=== PATIENT | male | born 1970 | race Caucasian/White ===

== ENCOUNTER 2017-10-29 23:32 | Emergency (ER) | payer SELFPAY ==
[2017-10-29 23:39] VITALS: BP 140/82; PULSE 62; TEMP 98; BMI 39.7
--- NOTE | 2017-10-30 00:32 | PDOC ---
History of Present Illness - General Chief Complaint: Blood Pressure Problem Stated Complaint: BLOOD PRESSURE PROBLEM Time Seen by Provider: 10/30/17 00:31 Past History - Past Medical History Allergies/Adverse Reactions: Allergies Allergy/AdvReac Type Severity Reaction Status Date / Time No Known Allergies Allergy Verified 10/29/17 23:39 Home Medications: Ambulatory Orders Losartan Potassium [Cozaar -] 25 mg PO DAILY #0 tablet 04/21/13 Metoprolol Tartrate [Lopressor -] 25 mg PO DAILY #0 tab 04/21/13 Ondansetron [Zofran Odt -] 8 mg SL TID PRN #21 od.tablet 01/18/15 Oxycodone HCl/Acetaminophen [Percocet 10-325 mg Tablet] 1 tab PO Q6H PRN #4 tablet 01/18/15 Oxycodone HCl/Acetaminophen [Percocet 5/325 -] 1 tab PO Q4H PRN #10 tablet 05/11 levoFLOXacin [Levaquin -] 500 mg PO DAILY #7 tablet 09/27/15 metroNIDAZOLE [Flagyl -] 500 mg PO TID #21 tablet 09/27/15 COPD: No HTN: Yes Thyroid Disease: No - Surgical History Abdominal Surgery: Yes (AAA REPAIR 04/12/13, stent replaced 01/07/2014) - Immunization History Immunization Up to Date: Yes - Suicide/Smoking/Psychosocial Hx Smoking History: Never smoked Have you smoked in the past 12 months: No Number of Cigarettes Smoked Daily: 0 Hx Alcohol Use: Yes (SOCIAL) Drug/Substance Use Hx: No Substance Use Type: None Hx Substance Use Treatment: No *Physical Exam - Vital Signs Last Vital Signs Temp Pulse Resp BP Pulse Ox 98.0 F 62 18 140/82 99 10/29/17 23:37 10/29/17 23:37 10/29/17 23:37 10/29/17 23:37 10/29/17 23:37 *DC/Admit/Observation/Transfer - Referrals Referrals: Yenni Bello MD [Primary Care Provider] - - Patient Instructions - Post Discharge Activity
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
[2017-10-30] MEDS ORDERED: TOPIRAMATE 200 MG TABLET (FP) PO ONE (01:35)
[2017-10-30] MEDS ORDERED: OXcarbazepine 300 MG/5 ML 250 ML BULK BOTTLE PO ONE (01:35)
[2017-10-30] MEDS ORDERED: BACLOFEN 10 MG TABLET (FP) PO ONE (01:35)
[2017-10-30] MEDS ORDERED: levETIRAcetam 500 MG TABLET (FP) PO ONE (01:35)
== END 2017-10-30 01:28 | disposition left against medical advice (07) ==
LOC: JER 23:32
DX: I10 Essential (primary) hypertension (principal); E66.9 Obesity, unspecified; Z68.39 Body mass index [BMI] 39.0-39.9, adult; Z86.79 Personal history of other diseases of the circulatory system; Z87.19 Personal history of other diseases of the digestive system; Z95.828 Presence of other vascular implants and grafts
CPT/HCPCS: 99282-25

== ENCOUNTER 2018-11-06 09:18 | Emergency (ER) | payer OTHER ==
[2018-11-06 09:24] VITALS: TEMP 97.9; BMI 43.4
[2018-11-06] MEDS ORDERED: ACETAMINOPHEN 1000 MG/100 ML VIAL (NON FORMULARY) IVPB ONE (10:04)
[2018-11-06] MEDS ORDERED: METOCLOPRAMIDE HCL INJECTION 10 MG/2 ML VIAL IVPB ONE (10:04)
[2018-11-06] MEDS ORDERED: SODIUM CHLORIDE 1,000 ML IV STA (10:04)
[2018-11-06] MEDS ORDERED: ACETAMINOPHEN INJECTION 100 ML IVPB ONE (10:38)
[2018-11-06] MEDS ORDERED: METOCLOPRAMIDE HCL INJECTION 10 MG/2 ML VIAL ONE (10:38)
[2018-11-06 10:49] LABS: EOS % 3.1 % (0-4.5); HEMATOCRIT 38.6 % (35.4-49); HEMOGLOBIN 12.8 GM/dL (11.7-16.9); LYMPH % 20.5 % (8-40); MCH 28.1 pg (25.7-33.7); MEAN CELL VOLUME 85.1 fl (80-96); MEAN PLT VOLUME 8.5 fl (7.5-11.1); MONO % 11.1 % (3.8-10.2); NEUT % 64.3 % (42.8-82.8); RBC 4.54 M/mm3 (4.00-5.60); WHITE BLOOD COUNT 6.5 K/mm3 (4.0-10.0)
--- NOTE | 2018-11-06 10:49 | PDOC ---
History of Present Illness - General Chief Complaint: CVA/TIA Stated Complaint: tongue numbing/ headache Time Seen by Provider: 11/06/18 09:41 History Source: Patient, Spouse Exam Limitations: Language Barrier - History of Present Illness Initial Comments: 11/06/18 10:45 48yo M with PMH of AAA s/p repair 2014, HTN presenting to ED with complaints of tongue swelling sensation, difficulty speaking and posterior headache. 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 His did not notice any changes in speech but patient was worried. Speech problems resolved upon examining patient. He states that his tongue feels like "there is an allergy." He has been having posterior headaches x3d which is bothersome but not painful. He states the headaches feel worse in the morning and is less bothersome throughout the day. Denies changes in vision, numbness/tingling, weakness, tinnitus, dizziness, lightheadedness, chest pain, sob, abdominal pain , n/v/d, syncope, dysuria, fevers, chills. PMD: Marquis Camp[place]: Kwame PMH: see hpi PSH; see hpi Meds: see med rec Allergies: nkda Past History - Past Medical History Allergies/Adverse Reactions: Allergies Allergy/AdvReac Type Severity Reaction Status Date / Time No Known Allergies Allergy Verified 11/06/18 09:24 Home Medications: Ambulatory Orders Losartan Potassium [Cozaar -] 25 mg PO DAILY #0 tablet 04/21/13 Metoprolol Tartrate [Lopressor -] 25 mg PO DAILY #0 tab 04/21/13 Ondansetron [Zofran Odt -] 8 mg SL TID PRN #21 od.tablet 01/18/15 Oxycodone HCl/Acetaminophen [Percocet 10-325 mg Tablet] 1 tab PO Q6H PRN #4 tablet 01/18/15 COPD: No HTN: Yes Thyroid Disease: No - Surgical History Abdominal Surgery: Yes (AAA REPAIR 04/12/13, stent replaced 01/07/2014) - Immunization History Immunization Up to Date: Yes - Suicide/Smoking/Psychosocial Hx Smoking History: Never smoked Have you smoked in the past 12 months: No Number of Cigarettes Smoked Daily: 0 Hx Alcohol Use: No Drug/Substance Use Hx: No Substance Use Type: None Hx Substance Use Treatment: No Review of Systems - Review of Systems Constitutional: No: Symptoms Reported HEENTM: Yes: See HPI Respiratory: No: Symptoms reported Cardiac (ROS): No: Symptoms Reported ABD/GI: No: Symptoms Reported : No: Symptoms Reported Musculoskeletal: No: Symptoms Reported Integumentary: No: Symptoms Reported Neurological: Yes: See HPI *Physical Exam - Vital Signs Last Vital Signs Temp Pulse Resp BP Pulse Ox 97.9 F 95 H 18 158/83 97 11/06/18 09:20 11/06/18 09:20 11/06/18 09:20 11/06/18 09:20 11/06/18 09:20 - Physical Exam General Appearance: Yes: Appropriately Dressed, Obese. No: Apparent Distress HEENT: positive: EOMI, BRIANNA, Normal ENT Inspection Neck: positive: Trachea midline, Supple. negative: Carotid bruit Respiratory/Chest: positive: Lungs Clear, Normal Breath Sounds. negative: Rhonchi, Stridor, Wheezing Cardiovascular: positive: Regular Rhythm, Regular Rate, S1, S2. negative: Edema , JVD, Murmur Vascular Pulses: Dorsalis-Pedis (R): 2+, Doralis-Pedis (L): 2+ Gastrointestinal/Abdominal: positive: Normal Bowel Sounds, Soft. negative: Tender Musculoskeletal: negative: CVA Tenderness, Decreased Range of Motion Extremity: positive: Normal Capillary Refill. negative: Swelling, Calf Tenderness Integumentary: positive: Normal Color, Dry, Warm. negative: Swelling Neurologic: positive: director of restaurant II-XII NML intact, Fully Oriented, Alert, Normal Mood/ Affect, Normal Response, Motor Strength 5/5, Finger to Nose. negative: Facial Droop, Numbness, Sensory Deficit ED Treatment Course - LABORATORY CBC & Chemistry Diagram: 11/06/18 10:39 11/06/18 10:39 - RADIOLOGY Radiology Studies Ordered: Category Date Time Status HEAD CT WITHOUT CONTRAST [CT] Stat CT Scan 11/06/18 10:15 Completed Medical Decision Making - Medical Decision Making 11/06/18 10:49 48yo M with PMH of AAA s/p repair 2014, HTN presenting to ED with complaints of tongue swelling sensation, difficulty speaking and posterior headache. 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 His did not notice any changes in speech but patient was worried. Speech problems resolved upon examining patient. He states that his tongue feels like "there is an allergy." He has been having posterior headaches x3d which is bothersome but not painful. He states the headaches feel worse in the morning and is less bothersome throughout the day. Denies changes in vision, numbness/tingling, weakness, tinnitus, dizziness, lightheadedness, chest pain, sob, abdominal pain , n/v/d, syncope, dysuria, fevers, chills. Vitals: wnl PE: NIHSS 0, normal neurological exam. lungs cta, heart sound normal. low suspicion for cva/tia given pt feels like his tongue is swollen, not numb. did not notice dysarthria and patient denies, only felt that way because his tongue felt funny. will order labs, ct head. fluids, reglan and tylenol for headache. Will reassess. CT negative for acute process. ekg: sinus at 75. pr 218, wtc 442. no shannon or depressions, no afib labs wnl pt reports feeling better after medications. likely atypical migraine. given neuro f/u. safe for dc home. given strict return precautions. *DC/Admit/Observation/Transfer Diagnosis at time of Disposition: Headache Qualifiers: Headache type: unspecified Headache chronicity pattern: acute headache Intractability: not intractable Qualified Code(s): R51 - Headache - Discharge Dispostion Disposition: HOME Condition at time of disposition: Improved Decision to Admit order: No - Referrals Referrals: Hortensia Wetzel MD [Primary Care Provider] - Dick Puente MD [Staff Physician] - Sohan Payton MD [Staff Physician] - - Patient Instructions Printed Discharge Instructions: DI for Headache Additional Instructions: You were seen in the emergency room today for headache. The CT scan and the blood work was all normal. I do not think that this was a stroke, it could be an atypical migraine headache. You can take Tylenol or ibuprofen for the headaches as needed. I recommend making an appointment with a neurologist if the headaches continue to bother you. Information is provided below. I also recommend making an appointment with Dr. Puente to discuss the repair and getting a CT scan of the abdomen. Come back to the emergency room if headaches get worse, you have difficulty talking, you are unable to move your arms and/or legs, you have facial droop or if any new concerning symptom develops. Thank you Te vieron en la twial de emergencias hoy por dolor de dallin. La tomografa computarizada y el anlisis de luis fueron normales. No creo que esto haya sido un derrame cerebral, podra ser un dolor de dallin de migraa atpico. Puede dutch Tylenol o ibuprofeno para los apurva de dallin segn sea necesario. Recomiendo hacer anna marie nii con un neurlogo si los apurva de dallin continan molestndolo. La informacin se proporciona a continuacin. Darryl recomiendo hacer anna marie nii con el Dr. Puente para discutir la reparacin y obtener anna marie tomografa computarizada del abdomen. Regrese a la twila de emergencias si los apurva de dallin empeoran, tiene dificultades para hablar, no puede truck dock material mover los brazos y / o las piernas, tiene cada facial o si se desarrolla algn sntoma nuevo. Shaquille Print Language: MALAY - Post Discharge Activity
[2018-11-06 10:54] LABS: PLATELET COUNT 268 K/MM3 (134-434)
--- NOTE | 2018-11-06 10:58 | PDOC ---
Documentation entered by Blanca Rosas SCRIBE, acting as scribe for Hunter Wilson MD. Hunter Wilson MD: This documentation has been prepared by the roulaibe, Blanca Rosas SCRIBE, under my direction and personally reviewed by me in its entirety. I confirm that the documentation accurately reflects all work, treatment, procedures, and medical decision making performed by me. Attending Attestation - Resident Resident Name: Pilar Harvey - ED Attending Attestation I have performed the following: I have examined & evaluated the patient, The case was reviewed & discussed with the resident, I agree w/resident's findings & plan, Exceptions are as noted - HPI HPI: 11/06/18 10:58 48 M with h/o AAA s/p repair, HTN, presenting to ED with headache and tongue "heaviness". Pt states that he has had a mild headache for 3 days. He reports R sided pain that comes and goes. Denies thunderclap, denies worst headache of life. Denies N/V. Denies neck stiffness/pain. Denies F/C. States that he has had similar headaches int he past. Pt also endorses a heaviness in his tongue. He states it initially felt numb but now feels as if it is swollen. Denies any slurred speech. Denies throat swelling. Denies difficulty swallowing or breathing. denies any changes in his face or speech. Pt denies any numbness /weakness in any extremity. Denies CP/SOB. - Physicial Exam PE: 11/06/18 11:00 "GENERAL: Awake, alert, and fully oriented, in no acute distress. HEAD: No signs of trauma EYES: PERRLA, EOMI, sclera anicteric, conjunctiva clear ENT: Auricles normal inspection, hearing grossly normal, nares patent, oropharynx clear without exudates. Moist mucosa NECK: Nontender, no stepoffs, Normal ROM, supple, no lymphadenopathy, JVD, or masses LUNGS: Breath sounds equal, clear to auscultation bilaterally. No wheezes, and no crackles HEART: Regular rate and rhythm, normal S1 and S2, no murmurs, rubs or gallops ABDOMEN: Soft, nontender, normoactive bowel sounds. No guarding, no rebound. No masses EXTREMITIES: Normal range of motion, no edema. No clubbing or cyanosis. No cords, erythema, or tenderness NEUROLOGICAL: Cranial nerves II through XII intact. 5/5 strength and sensation in all extremities, Normal speech, normal gait, normal cerebellar function SKIN: Warm, Dry, normal turgor, no rashes or lesions noted. - Medical Decision Making 11/06/18 11:02 48 M with headache and tongue heaviness. NIHSS 0 at this time. NO neuro deficits , no dysarthria. No evidence of tongue swelling or other airway edema/ compromise. Exam completely benign at this time. Suspect headache is migrainous. Possible atypical migraine. - Labs - CT head - IVF, tylenol, reglan - Reassess 11/06/18 11:58 Labs, CT wnl Pt reassessed - now has complete resolution of OLIVEROS and tongue heaviness. Exam continues to be normal without neuro deficits Pt is well appearing, with normal vitals. Clinically stable for DC at this time. I discussed the physical exam findings, ancillary test results and final diagnoses with the patient. I answered all of the patient's questions. The patient was satisfied with the care received and felt comfortable with the discharge plan and treatment plan. The patient agrees to follow up with the primary care physician within 24-72 hours.
[2018-11-06 11:01] LABS: INR 1.16 (0.83-1.09); PROTHROMBIN TIME (PATIENT) 13.7 SEC (9.7-13.0)
[2018-11-06 11:19] LABS: ALBUMIN 3.5 g/dl (3.4-5.0); ALK PHOS 74 U/L (45-117); ANION GAP 2 MMOL/L (8-16); BILIRUBIN,TOTAL 0.5 mg/dL (0.2-1); BLOOD UREA NITROGEN 13.9 mg/dL (7-18); CHLORIDE 107 mmol/L (98-107); CO2 32 mmol/L (21-32); CREATININE 0.7 mg/dL (0.55-1.3); GLUCOSE,RANDOM 87 mg/dL (74-106); POTASSIUM 4.2 mmol/L (3.5-5.1); SGOT/AST 24 U/L (15-37); SGPT/ALT 38 U/L (13-61); SODIUM 142 mmol/L (136-145); TOT PROT 7.2 g/dl (6.4-8.2)
[2018-11-06 11:33] VITALS: PULSE 88
[2018-11-06 12:13] VITALS: BP 148/76
--- NOTE | 2018-11-06 14:01 | EKG ---
Test Reason : Blood Pressure : / mmHG Vent. Rate : 075 BPM Atrial Rate : 075 BPM P-R Int : 218 ms QRS Dur : 092 ms QT Int : 396 ms P-R-T Axes : 040 -12 027 degrees QTc Int : 442 ms POOR DATA QUALITY, INTERPRETATION MAY BE ADVERSELY AFFECTED SINUS RHYTHM WITH 1ST DEGREE A-V BLOCK MINIMAL VOLTAGE CRITERIA FOR LVH, MAY BE NORMAL VARIANT WHEN COMPARED WITH ECG OF 11-MAY-2015 15:48, NO SIGNIFICANT CHANGE WAS FOUND Confirmed by DAFNE CHERRY MD ([id number]) on 11/06/2018 2:01:27 PM Referred By: Confirmed By:DAFNE CHERRY MD
== END 2018-11-06 12:12 | disposition home or self-care (01) ==
LOC: JER 09:18
PROC: 3E033NZ Introduction of Analgesics, Hypnotics, Sedatives into Peripheral Vein, Percutaneous Approach (ICD-10-PCS; principal; 2018-11-06)
PROC: 3E033GC Introduction of Other Therapeutic Substance into Peripheral Vein, Percutaneous Approach (ICD-10-PCS; 2018-11-06)
DX: R51 Headache (principal); I10 Essential (primary) hypertension; Z86.79 Personal history of other diseases of the circulatory system
CPT/HCPCS: 36415; 70450-TC; 80053; 84484; 85025; 85610; 93005; 93010; 96374; 96375; 99283-25; J0131; J7030

== ENCOUNTER 2018-11-07 13:36 | Inpatient (IN) | payer OTHER ==
[2018-11-07] MEDS ORDERED: ACETAMINOPHEN 1000 MG/100 ML VIAL (NON FORMULARY) IVPB ONE (14:57)
[2018-11-07] MEDS ORDERED: ATORVASTATIN CA 80 MG TABLET (FP) PO ONE (15:22)
--- NOTE | 2018-11-07 15:29 | PDOC ---
History of Present Illness - General Chief Complaint: Blood Pressure Problem Stated Complaint: TONGUE NUMBING, HTN Time Seen by Provider: 11/07/18 14:16 History Source: Patient, Spouse Exam Limitations: Language Barrier - History of Present Illness Initial Comments: 11/07/18 15:30 48yo M with PMH of AAA s/p repair 2013, HTN representing to ED with complaints of tongue itchiness/heaviness affecting speech. Pt was seen here yesterday for similar complaints. Workup yesterday was negative with negative CT and symptomatic improvement with medications. Since being discharged home, pt complained of the itchiness in the tongue and posterior headache which he has had for a few days. Per , headache was worse last night. She checked his bp this AM prior to giving medications and it was 170s/90s. She also noticed a difference in his speech, describing it as "he sounded drunk". She gave him Benadryl prior to arrival which seemed to have helped but patient still feels as if he cannot speak well. He has significant family history of CVD. Denies numbness/tingling in face or extremities, weakness, changes in vision, ataxia, dizziness, n/v/d, chest pain, sob, throat swelling, new medication or food ingestion, thunderclap headache, syncope, injury. PMD: [place] PMH: see hpi PSH: see hpi Meds: antihypertensives Allergies: nkda NIH Stroke Scale - Last Known Well Date/Time & Onset Date Last Known Well: 11/06/18 Time Last Known Well: 00:00 - Initial Evaluation Level of consciousness: Alert Ask patient the month and their age: Answers both correctly Ask patient to open & close eyes; make fist and let go: Obeys both correctly Best gaze (horizontal eye movement): Normal Visual field testing: No visual field loss Facial paresis (Show teeth/raise eyebrows/close eyes tight): Normal symmetrical movement Motor Function: Left Arm: Normal Motor Function: Right Arm: Normal (extends arm 90 (or 45) degrees for 10 seconds without drift Motor Function: Left Leg: Normal (extends leg 30 degrees for 5 seconds without drift) Motor Function: Right Leg: Normal (extends leg 30 degrees for 5 seconds without drift) Limb Ataxia: No ataxia Sensory(Use pinprick test arms,legs,trunk,face/side to side): Normal Best language (Describe picture, name items, read sentences): No Aphasia Dysarthria (read several words): Normal articulation Extinction and Inattention: No abnormality - Total Score NIH Stroke Scale Score: 0 Past History - Past Medical History Allergies/Adverse Reactions: Allergies Allergy/AdvReac Type Severity Reaction Status Date / Time No Known Allergies Allergy Verified 11/07/18 13:45 Home Medications: Ambulatory Orders Losartan Potassium [Cozaar -] 25 mg PO DAILY #0 tablet 04/21/13 Metoprolol Tartrate [Lopressor -] 25 mg PO DAILY #0 tab 04/21/13 Ondansetron [Zofran Odt -] 8 mg SL TID PRN #21 od.tablet 01/18/15 Oxycodone HCl/Acetaminophen [Percocet 10-325 mg Tablet] 1 tab PO Q6H PRN #4 tablet 01/18/15 COPD: No HTN: Yes Thyroid Disease: No - Surgical History Abdominal Surgery: Yes (AAA REPAIR 04/12/13, stent replaced 01/07/2014) - Immunization History Immunization Up to Date: Yes - Suicide/Smoking/Psychosocial Hx Smoking History: Never smoked Have you smoked in the past 12 months: No Number of Cigarettes Smoked Daily: 0 Information on smoking cessation initiated: No Hx Alcohol Use: No Drug/Substance Use Hx: No Substance Use Type: None Hx Substance Use Treatment: No Review of Systems - Review of Systems Constitutional: No: Symptoms Reported HEENTM: Yes: See HPI, Other. No: Throat Pain, Throat Swelling Respiratory: No: Symptoms reported Cardiac (ROS): No: Symptoms Reported ABD/GI: No: Symptoms Reported : No: Symptoms Reported Musculoskeletal: No: Symptoms Reported Integumentary: No: Symptoms Reported Neurological: Yes: See HPI *Physical Exam - Vital Signs Last Vital Signs Temp Pulse Resp BP Pulse Ox 97.7 F 69 19 130/76 97 11/07/18 13:43 11/07/18 13:43 11/07/18 13:43 11/07/18 13:43 11/07/18 13:43 - Physical Exam General Appearance: Yes: Appropriately Dressed, Obese. No: Apparent Distress HEENT: positive: EOMI, BRIANNA, Normal ENT Inspection, Other (no OP swelling) Neck: positive: Trachea midline, Supple. negative: Carotid bruit, Lymphadenopathy (R), Lymphadenopathy (L) Respiratory/Chest: positive: Lungs Clear, Normal Breath Sounds Cardiovascular: positive: Regular Rhythm, Regular Rate, S1, S2. negative: Edema , JVD, Murmur Vascular Pulses: Dorsalis-Pedis (R): 2+, Doralis-Pedis (L): 2+ Gastrointestinal/Abdominal: positive: Normal Bowel Sounds, Soft. negative: Tender Musculoskeletal: negative: CVA Tenderness Extremity: positive: Normal Capillary Refill. negative: Swelling, Calf Tenderness Integumentary: positive: Normal Color, Dry, Warm Neurologic: positive: luggage maker II-XII NML intact, Fully Oriented, Alert, Normal Mood/ Affect, Normal Response, Motor Strength 5/5, Finger to Nose. negative: Facial Droop, Numbness, Sensory Deficit ED Treatment Course - LABORATORY CBC & Chemistry Diagram: 11/07/18 15:05 11/07/18 15:05 - RADIOLOGY Radiology Studies Ordered: Category Date Time Status HEAD CT WITHOUT CONTRAST [CT] Stat CT Scan 11/07/18 14:51 Ordered BRAIN MRA W/O CONTRAST [MRI] Stat MRI 11/07/18 15:22 Ordered BRAIN MRI W/O CONTRAST [MRI] Stat MRI 11/07/18 15:20 Ordered Medical Decision Making - Medical Decision Making 11/07/18 15:35 48yo M with PMH of AAA s/p repair 2013, HTN representing to ED with complaints of tongue itchiness/heaviness affecting speech. Pt was seen here yesterday for similar complaints. Workup yesterday was negative with negative CT and symptomatic improvement with medications. Since being discharged home, pt complained of the itchiness in the tongue and posterior headache which he has had for a few days. Per , headache was worse last night. She checked his bp this AM prior to giving medications and it was 170s/90s. She also noticed a difference in his speech, describing it as "he sounded drunk". She gave him Benadryl prior to arrival which seemed to have helped but patient still feels as if he cannot speak well. He has significant family history of CVD. Denies numbness/tingling in face or extremities, weakness, changes in vision, ataxia, dizziness, n/v/d, chest pain, sob, throat swelling, new medication or food ingestion, thunderclap headache, syncope, injury. Vitals: wnl PE: normal neurological exam, NIHSS 0, normal tongue movements, able to move tongue rapidly without complications, no ataxia, normal heart sounds, normal breath sounds, no neck stiffness. This is patient's second time coming to ED with similar complaints. Given family history and patient's history of CAD, may need admission for evaluation of stroke. Stroke scale 0 and last known well >24h ago. Does not qualify for tpa. Low suspicion for meningitis/encephalitis given patient not febrile, no neck stiffness, and no white count. Spoke to Dr. Valdes who recommended MRI/MRA. Will place pt on statin. Will need admission to tele. Labs and CT head pending. 11/07/18 15:45 ekg: nsr at 60bpm, pr 208, qtc 430. no shannon or depressions. Labs show K of 5.9 with note of slight hemolysis. will check again. All other labs wnl. Pt refusing to take Lipitor. CT head shows possible Chiari malformation with tonsils near foramen magnum. Accepted by hospitalist. 11/07/18 19:51 *DC/Admit/Observation/Transfer Diagnosis at time of Disposition: Slurred speech - Discharge Dispostion Condition at time of disposition: Good Decision to Admit order: Yes - Referrals - Patient Instructions - Post Discharge Activity
[2018-11-07 15:54] LABS: BASO % 1.1 % (0-2.0); EOS % 2.7 % (0-4.5); HEMATOCRIT 40.2 % (35.4-49); HEMOGLOBIN 13.4 GM/dL (11.7-16.9); LYMPH % 27.7 % (8-40); MCHC 33.2 g/dl (32.0-35.9); MEAN CELL VOLUME 84.4 fl (80-96); MEAN PLT VOLUME 9.4 fl (7.5-11.1); MONO % 10.5 % (3.8-10.2); PLATELET COUNT 292 K/MM3 (134-434); RBC 4.77 M/mm3 (4.00-5.60); RDW 15.5 % (11.9-15.9); WHITE BLOOD COUNT 7.8 K/mm3 (4.0-10.0)
[2018-11-07] MEDS ORDERED: ATORVASTATIN CA 80 MG TABLET (FP) ONE (15:54)
[2018-11-07 16:21] LABS: ALBUMIN 3.5 g/dl (3.4-5.0); BILIRUBIN,TOTAL 0.6 mg/dL (0.2-1); BLOOD UREA NITROGEN 11.6 mg/dL (7-18); CALCIUM 9.1 mg/dL (8.5-10.1); CREATININE 0.7 mg/dL (0.55-1.3); MAGNESIUM 2.4 mg/dL (1.8-2.4); POTASSIUM 5.9 mmol/L (3.5-5.1); TOT PROT 7.9 g/dl (6.4-8.2)
--- NOTE | 2018-11-07 16:30 | PDOC ---
Documentation entered by Blanca Rosas SCRIBE, acting as scribe for Elizabeth Olivier MD. Elizabeth Olivier MD: This documentation has been prepared by the scribe, Blanca Rosas SCRIBE, under my direction and personally reviewed by me in its entirety. I confirm that the documentation accurately reflects all work, treatment, procedures, and medical decision making performed by me. Attending Attestation - Resident Resident Name: Pilar Harvey - [facility] HPI: 11/07/18 15:29 The patient is a 48-year-old male with a past medical history significant for AAA repair, and HTN presents to the emergency department with tongue itching and heaviness. The patient reports itching and heaviness to his tongue, associated with voice change per , denies slurred speech. The patient was seen at the ER for a similar complaint on 11/06/2018. Patient's CT was negative for acute processes and discharged home. The patient reports since discharge, he s been having tongue itching and worsening headache. Denies weakness or facial drooping. - Physicial Exam PE: 11/07/18 16:28 GENERAL: Awake, alert, and fully oriented, in no acute distress LUNGS: Breath sounds equal, clear to auscultation bilaterally. No wheezes, and no crackles HEART: Regular rate and rhythm, normal S1 and S2, no murmurs, rubs or gallops NEUROLOGICAL: +very mild word finding difficulty. SKIN: Warm, Dry, normal turgor, no rashes or lesions noted. - Medical Decision Making 11/16/18 07:16 Pt presents to the ED complaining of tongue heaviness and changes to his speech that began last night. Seen in the ED for similar complaints yesterday, had work up that was negative and was discharged home. Neuro exam is intact with possible very slight slurred speech and word finding difficulty. Given that the patient has multiple risk factors for CVA and that this is his second visit , will admit for CVA rule out. 11/16/18 07:20
[2018-11-07 17:03] LABS: INR 1.13 (0.83-1.09); PROTHROMBIN TIME (PATIENT) 13.3 SEC (9.7-13.0)
--- NOTE | 2018-11-07 18:14 | PN ---
Teaching Attending Note Name of Resident: Faiza Purvis ATTENDING PHYSICIAN STATEMENT I saw and evaluated the patient. I reviewed the resident's note and discussed the case with the resident. I agree with the resident's findings and plan as documented. SUBJECTIVE: Tongue heaviness and itching mildly improved after Benadryl. Episode of slurred speech earlier today resolved. No difficulty swallowing or breathing. No limb numbness/weakness/tingling/fits/faints/blackouts/seizures. Mild headache. No visual disturbance/nausea/vomiting OBJECTIVE: Afebrile, Hemodnamically Stable. Last Vital Signs Temp Pulse Resp BP Pulse Ox 97.7 F 69 19 130/76 99 11/07/18 13:43 11/07/18 13:43 11/07/18 13:43 11/07/18 13:43 11/07/18 14:30 HEENT - Atraumatic, normocephalic. Clearing secretions, normal appearing tongue. Heart - S1, S2, RRR Lungs - clear to auscultation, no crackles/wheeze. No stridor. Abdomen - High BMI. Soft, non-tender. Bowel Sounds normal. Extremities - No edema, varicose veins, no calf tenderness Neuro - AAO x 3. Tone/Power normal all 4 extremities. candle wicker intact. EOMI. BRIANNA. Laboratory Results - last 24 hr 11/07/18 11/07/18 11/07/18 15:05 15:05 15:05 WBC 7.8 RBC 4.77 Hgb 13.4 Hct 40.2 MCV 84.4 MCH 28.0 MCHC 33.2 RDW 15.5 Plt Count 292 MPV 9.4 D Absolute Neuts (auto) 4.5 Neutrophils % 58.0 Lymphocytes % 27.7 D Monocytes % 10.5 H Eosinophils % 2.7 Basophils % 1.1 Nucleated RBC % 0 PT with INR INR Sodium 140 Potassium 5.9 H Chloride 107 Carbon Dioxide 28 Anion Gap 6 L BUN 11.6 Creatinine 0.7 Est GFR (CKD-EPI)AfAm 130.25 Est GFR (CKD-EPI)NonAf 112.38 Random Glucose 75 Calcium 9.1 Magnesium 2.4 Total Bilirubin 0.6 AST 65 H ALT 39 Alkaline Phosphatase 67 Troponin I < 0.02 Total Protein 7.9 Albumin 3.5 11/07/18 11/07/18 15:05 16:39 WBC RBC Hgb Hct MCV MCH MCHC RDW Plt Count MPV Absolute Neuts (auto) Neutrophils % Lymphocytes % Monocytes % Eosinophils % Basophils % Nucleated RBC % PT with INR Cancelled 13.30 H INR Cancelled 1.13 H Sodium Potassium Chloride Carbon Dioxide Anion Gap BUN Creatinine Est GFR (CKD-EPI)AfAm Est GFR (CKD-EPI)NonAf Random Glucose Calcium Magnesium Total Bilirubin AST ALT Alkaline Phosphatase Troponin I Total Protein Albumin Home Medications Medication Instructions Recorded Losartan Potassium [Cozaar -] 25 mg PO DAILY #0 tablet 04/21/13 Metoprolol Tartrate [Lopressor -] 25 mg PO DAILY #0 tab 04/21/13 Ondansetron [Zofran Odt -] 8 mg SL TID PRN #21 od.tablet 01/18/15 Oxycodone HCl/Acetaminophen 1 tab PO Q6H PRN #4 tablet 01/18/15 [Percocet 10-325 mg Tablet] ASSESSMENT AND PLAN: 48 year old male with HTN, AAA s/p repair 2013, presents with 2 day history of tongue heaviness, itching, episode of slurred speech earlier today (now resolved ). No difficulty swallowing or breathing. Mild headache with no visual disturbance/nausea/vomiting or limb numbness/weakness/tingling. No LOC or HI. No fever/chills. 1. Tongue Heaviness/Itching - no evidence of CVA, likely Allergy CT brain neg MRI/MRA Brain - neg for acute intracranial infarct; no stenosis/dissection/ occlusion. ECG - NSR, no acute changes. Complete TIA work-up: Echo with bubble study and Carotid Duplex requested. Neurology consult. Telemetry monitoring. Regular neurochecks. Hold Losartan. Benadryl prn Fasting Lipid Profile in AM ASA/Statin started. 2. Hyperkalemia, likely lab error. Repeat K level Hold Losartan. 3. HTN - continue Metoprolol. Hold Losartan. Will give Norvasc 5mg. 4. AAA s/p repair 2013 - continue BB DVT Px - Heparin SQ
[2018-11-07] MEDS ORDERED: diphenhydrAMINE HCL 25 MG CAPSULE (FP) PO PRN (18:37)
--- NOTE | 2018-11-07 18:47 | HP ---
CHIEF COMPLAINT: tongue heaviness and headache PCP: HISTORY OF PRESENT ILLNESS: 48 yo M PMH HTN, AAA ( s/p repair 2013) presented to the ED complaining of tongue heaviness and headache. Pt states that yesterday around 9 am he first noticed the heaviness in his tongue. He states that this was impairing his speech. Pt also noted a headache and an elevated BP when he checked his BP at home. Pt presented to the ED yesterday with the same complaint. Pt states that the symptoms have not resolved. Pt currently states that his tongue heaviness is improved. he described his headache as a dull headache, 4/10 intensity. he states he sometimes experiences similar headaches when his BP is elevated. Pt states he is compliant with his medications and that his last physical was 2 months ago and was wnl. Pt states this is the first time this has happened. Pt denies dizziness, CP, palpitations, n/v/d. Pt states he has no known allergies. ER course was notable for: (1)CT head (2)MRI/MRA (3) PAST MEDICAL HISTORY: HTN, AAA PAST SURGICAL HISTORY: AAA repair Social History: Smoking:denies Alcohol:denies Drugs: denies Family History: Mother from Aneurysm, HTN, DM; Brother at age 35 from [place] Allergies No Known Allergies Allergy (Verified 11/07/18 13:45) HOME MEDICATIONS: Home Medications Medication Instructions Recorded Losartan Potassium [Cozaar -] 25 mg PO DAILY #0 tablet 04/21/13 Metoprolol Tartrate [Lopressor -] 25 mg PO DAILY #0 tab 04/21/13 Ondansetron [Zofran Odt -] 8 mg SL TID PRN #21 od.tablet 01/18/15 Oxycodone HCl/Acetaminophen 1 tab PO Q6H PRN #4 tablet 01/18/15 [Percocet 10-325 mg Tablet] REVIEW OF SYSTEMS CONSTITUTIONAL: Absent: fever, chills, diaphoresis, generalized weakness, malaise, loss of appetite, weight change HEENT: Present: tongue heaviness Absent: rhinorrhea, nasal congestion, throat pain, throat swelling, difficulty swallowing, ear pain, eye pain, visual changes CARDIOVASCULAR: Absent: chest pain, syncope, palpitations, irregular heart rate, lightheadedness , peripheral edema RESPIRATORY: Absent: cough, shortness of breath, dyspnea with exertion, orthopnea, wheezing, stridor, hemoptysis GASTROINTESTINAL: Absent: abdominal pain, abdominal distension, nausea, vomiting, diarrhea, constipation, melena, hematochezia GENITOURINARY: Absent: dysuria, frequency, urgency, hesitancy, hematuria, flank pain, genital pain MUSCULOSKELETAL: Absent: myalgia, arthralgia, joint swelling, back pain, neck pain SKIN: Absent: rash, itching, pallor HEMATOLOGIC/IMMUNOLOGIC: Absent: easy bleeding, easy bruising, lymphadenopathy, frequent infections ENDOCRINE: Absent: unexplained weight gain, unexplained weight loss, heat intolerance, cold intolerance NEUROLOGIC: Present: headache Absent: focal weakness or paresthesias, dizziness, unsteady gait, seizure, mental status changes, bladder or bowel incontinence PSYCHIATRIC: Absent: anxiety, depression, suicidal or homicidal ideation, hallucinations. PHYSICAL EXAMINATION Vital Signs - 24 hr 11/07/18 11/07/18 13:43 14:30 Temperature 97.7 F Pulse Rate 69 Respiratory 19 Rate Blood Pressure 130/76 O2 Sat by Pulse 97 99 Oximetry (%) GENERAL: Awake, alert, and fully oriented, in no acute distress. HEAD: Normal with no signs of trauma. EYES: Pupils equal, round and reactive to light, extraocular movements intact, sclera anicteric, conjunctiva clear. No lid lag. EARS, NOSE, THROAT: oropharynx clear without exudates. Moist mucous membranes. no edema, normal tongue size NECK: Normal range of motion, supple. + L submandibular lymph node. no JVD LUNGS: Breath sounds equal, clear to auscultation bilaterally. No wheezes, and no crackles. No accessory muscle use. HEART: Regular rate and rhythm, normal S1 and S2 without murmur, rub or gallop. ABDOMEN: Obese, Soft, nontender, not distended, normoactive bowel sounds, no guarding, no rebound, no masses. MUSCULOSKELETAL: Normal range of motion at all joints. No bony deformities or tenderness. No CVA tenderness. UPPER EXTREMITIES: 2+ pulses, warm, well-perfused. No cyanosis. No clubbing. No peripheral edema. LOWER EXTREMITIES: 2+ pulses, warm, well-perfused. No calf tenderness. No peripheral edema. NEUROLOGICAL: Cranial nerves II-XII intact. Normal speech. Normal gait. 5/5 muscle strength UE and LE, NIHSS 0 PSYCHIATRIC: Cooperative. Good eye contact. Appropriate mood and affect. SKIN: Warm, dry, normal turgor, no rashes or lesions noted, normal capillary refill. Laboratory Results - last 24 hr 11/07/18 11/07/18 11/07/18 15:05 15:05 15:05 WBC 7.8 RBC 4.77 Hgb 13.4 Hct 40.2 MCV 84.4 MCH 28.0 MCHC 33.2 RDW 15.5 Plt Count 292 MPV 9.4 D Absolute Neuts (auto) 4.5 Neutrophils % 58.0 Lymphocytes % 27.7 D Monocytes % 10.5 H Eosinophils % 2.7 Basophils % 1.1 Nucleated RBC % 0 PT with INR INR Sodium 140 Potassium 5.9 H Chloride 107 Carbon Dioxide 28 Anion Gap 6 L BUN 11.6 Creatinine 0.7 Est GFR (CKD-EPI)AfAm 130.25 Est GFR (CKD-EPI)NonAf 112.38 Random Glucose 75 Calcium 9.1 Magnesium 2.4 Total Bilirubin 0.6 AST 65 H ALT 39 Alkaline Phosphatase 67 Troponin I < 0.02 Total Protein 7.9 Albumin 3.5 ASSESSMENT/PLAN: 48 yo M PMH HTN, AAA ( s/p repair 2013) presented to the ED complaining of tongue heaviness and headache. pt is admitted to r/o TIA. headache likely 2/2 HTN vs TIA -CT head : see above -MRI/MRA: see above -will recommend Echo bubble study -will recommend carotid u/s -c/w tele observation -fasting lipid panel -A1C -PT -speech and swallow evaluation -neuro checks -c/w home meds metoprolol 25 daily -hold home cozaar , possible tongue heaviness may be attributed to possible angioedema -Neurology consult appreciated Hyperkalemia -rpt labs F/E/N -low sodium diet -monitor for hyperkalemia -replete electrolytes as needed DVT ppx: SCDs Dispo: continue tele monitoring until pt is medically optimized ATTENDING PHYSICIAN STATEMENT I saw and evaluated the patient. I reviewed the resident's note and discussed the case with the resident. I agree with the resident's findings and plan as documented. SUBJECTIVE: OBJECTIVE: ASSESSMENT AND PLAN:
--- NOTE | 2018-11-07 19:10 | HP ---
CHIEF COMPLAINT: tongue heaviness and headache PCP: HISTORY OF PRESENT ILLNESS: 48 yo M PMH of HTN and AAA presented to the ED with tongue heaviness and headache. Pt states these symptoms began 9 am yesterday morning. Pt states he feels tongue heaviness, making his words sound slurred. Pt stated this is the first time this happened and denied allergies. Pt states that he also experienced a headache and when he checked his BP at home it was elevated. Pt states the headache is dull and 4/10 constant. Pt states he sometimes gets headaches when his BP is high. Pt states he is compliant with his home medications and that his last physical was 2 months ago and was wnl. Pt presently endorses improvement with his tongue. pt denies CP, palpitations, dizziness, N/V/d. ER course was notable for: (1)CT (2)MRI/MRA (3) PAST MEDICAL HISTORY: HTN, AAA PAST SURGICAL HISTORY: AAA repair 2013 Social History: Smoking: denies Alcohol:denies Drugs: denies Family History: mother of aneurysm, DM, HTN; brother at 35 of [place] Allergies No Known Allergies Allergy (Verified 11/07/18 13:45) HOME MEDICATIONS: Home Medications Medication Instructions Recorded Losartan Potassium [Cozaar -] 25 mg PO DAILY #0 tablet 04/21/13 Metoprolol Tartrate [Lopressor -] 25 mg PO DAILY #0 tab 04/21/13 Ondansetron [Zofran Odt -] 8 mg SL TID PRN #21 od.tablet 01/18/15 Oxycodone HCl/Acetaminophen 1 tab PO Q6H PRN #4 tablet 01/18/15 [Percocet 10-325 mg Tablet] REVIEW OF SYSTEMS CONSTITUTIONAL: Absent: fever, chills, diaphoresis, generalized weakness, malaise, loss of appetite, weight change HEENT: Positive: tongue heaviness Absent: rhinorrhea, nasal congestion, throat pain, throat swelling, difficulty swallowing, ear pain, eye pain, visual changes CARDIOVASCULAR: Absent: chest pain, syncope, palpitations, irregular heart rate, lightheadedness , peripheral edema RESPIRATORY: Absent: cough, shortness of breath, dyspnea with exertion, orthopnea, wheezing, stridor, hemoptysis GASTROINTESTINAL: Absent: abdominal pain, abdominal distension, nausea, vomiting, diarrhea, constipation, melena, hematochezia GENITOURINARY: Absent: dysuria, frequency, urgency, hesitancy, hematuria, flank pain, genital pain MUSCULOSKELETAL: Absent: myalgia, arthralgia, joint swelling, back pain, neck pain SKIN: Absent: rash, itching, pallor HEMATOLOGIC/IMMUNOLOGIC: Absent: easy bleeding, easy bruising, lymphadenopathy, frequent infections ENDOCRINE: Absent: unexplained weight gain, unexplained weight loss, heat intolerance, cold intolerance NEUROLOGIC: Absent: headache, focal weakness or paresthesias, dizziness, unsteady gait, seizure, mental status changes, bladder or bowel incontinence PSYCHIATRIC: Absent: anxiety, depression, suicidal or homicidal ideation, hallucinations. PHYSICAL EXAMINATION Vital Signs - 24 hr 11/07/18 11/07/18 13:43 14:30 Temperature 97.7 F Pulse Rate 69 Respiratory 19 Rate Blood Pressure 130/76 O2 Sat by Pulse 97 99 Oximetry (%) GENERAL: Awake, alert, and fully oriented, in no acute distress. HEAD: Normal with no signs of trauma. EYES: Pupils equal, round and reactive to light, extraocular movements intact, sclera anicteric, conjunctiva clear. No lid lag. EARS, NOSE, THROAT: oropharynx clear without exudates. Moist mucous membranes. normal tongue size NECK: Normal range of motion, supple. L lymphadenopathy, no JVD LUNGS: Breath sounds equal, clear to auscultation bilaterally. No wheezes, and no crackles. No accessory muscle use. HEART: Regular rate and rhythm, normal S1 and S2 without murmur, rub or gallop. ABDOMEN:Obese, Soft, nontender, not distended, normoactive bowel sounds, no guarding, no rebound, no masses. MUSCULOSKELETAL: Normal range of motion at all joints. No bony deformities or tenderness. No CVA tenderness. UPPER EXTREMITIES: 2+ pulses, warm, well-perfused. No cyanosis. No clubbing. No peripheral edema. 5/5 muscle strength LOWER EXTREMITIES: 2+ pulses, warm, well-perfused. No calf tenderness. No peripheral edema. 5/5 muscle strength NEUROLOGICAL: Cranial nerves II-XII intact. Normal speech. Normal gait. PSYCHIATRIC: Cooperative. Good eye contact. Appropriate mood and affect. SKIN: Warm, dry, normal turgor, no rashes or lesions noted, normal capillary refill. Laboratory Results - last 24 hr 11/07/18 11/07/18 11/07/18 15:05 15:05 15:05 WBC 7.8 RBC 4.77 Hgb 13.4 Hct 40.2 MCV 84.4 MCH 28.0 MCHC 33.2 RDW 15.5 Plt Count 292 MPV 9.4 D Absolute Neuts (auto) 4.5 Neutrophils % 58.0 Lymphocytes % 27.7 D Monocytes % 10.5 H Eosinophils % 2.7 Basophils % 1.1 Nucleated RBC % 0 PT with INR INR Sodium 140 Potassium 5.9 H Chloride 107 Carbon Dioxide 28 Anion Gap 6 L BUN 11.6 Creatinine 0.7 Est GFR (CKD-EPI)AfAm 130.25 Est GFR (CKD-EPI)NonAf 112.38 Random Glucose 75 Calcium 9.1 Magnesium 2.4 Total Bilirubin 0.6 AST 65 H ALT 39 Alkaline Phosphatase 67 Troponin I < 0.02 Total Protein 7.9 Albumin 3.5 MR Brain Impression: No evidence of aneurysm of [place] of [place]. No evidence of basilar artery stenosis, dissection or occlusion. The visualized portions of the vertebral arteries are tortuous and unremarkable with no evidence of stenosis or dissection or occlusion. MR Brain with contrast Impression: No evidence of acute infarct. No evidence of intra or extra-axial neoplasm at this noncontrast study. No evidence of intracerebral hemorrhage, subdural fluid collection or hydrocephalus. The brainstem is unremarkable with no evidence of infarction or mass lesions Head CT: Impression: No CT evidence of acute intracranial pathology is identified. There is suggestion of Chiari malformation type I with crowding of the cerebellar tonsils on the foramen magnum for which correlation with a nonemergent MRI of the brain is needed. ASSESSMENT/PLAN: 48 yo M PMH of HTN and AAA presented to the ED with tongue heaviness and headache. pt is admitted to r/o TIA Headache likely 2/2 HTN vs TIA -CT head: see above -MRI/ MRA: see above -Neurology consult appreciated -atorvastatin as per neuro recs -fasting lipid panel, A1c -recommend Echo bubble study -recommend Carotid U/S -neuro checks -PT -speech and swallow eval Tongue/ speech abnormality r/o TIA vs angioedema -hold home Cozaar, possibly can lead to angioedema -Diphenhydramine Hyperkalemia -rpt labs F/E/N -diabetic diet -monitor electrolytes DVT ppx: SCDs DISPO: tele monitor until pt is medically optimized Visit type - Emergency Visit Emergency Visit: Yes ED Registration Date: 11/07/18 Care time: The patient presented to the Emergency Department on the above date and was hospitalized for further evaluation of their emergent condition. - New Patient This patient is new to me today: Yes Date on this admission: 11/09/18 - Critical Care Critical Care patient: No ATTENDING PHYSICIAN STATEMENT I saw and evaluated the patient. I reviewed the resident's note and discussed the case with the resident. I agree with the resident's findings and plan as documented. SUBJECTIVE: OBJECTIVE: ASSESSMENT AND PLAN:
[2018-11-07] MEDS ORDERED: ASPIRIN COATED 81 MG TABLET.EC ONE (19:31)
[2018-11-07] MEDS: ASPIRIN COATED 81 MG TABLET.EC PO SCH (19:36)
[2018-11-07 20:00] LABS: BLOOD UREA NITROGEN 11.6 mg/dL (7-18); CALCIUM 9.4 mg/dL (8.5-10.1); POTASSIUM 4.1 mmol/L (3.5-5.1)
[2018-11-07 20:01] LABS: CREATININE 0.6 mg/dL (0.55-1.3)
[2018-11-07] MEDS ORDERED: ATORVASTATIN CA 80 MG TABLET (FP) PO SCH (22:00)
[2018-11-07 23:50] VITALS: BMI 43.3
[2018-11-08] MEDS ORDERED: amLODIPine BESYLATE 5 MG TABLET (FP) PO ONE (00:43)
[2018-11-08] MEDS ORDERED: ACETAMINOPHEN 325 MG TABLET (FP) PO PRN (04:28)
[2018-11-08 08:16] LABS: BASO % 1.1 % (0-2.0); EOS % 3.3 % (0-4.5); HEMATOCRIT 40.5 % (35.4-49); HEMOGLOBIN 13.4 GM/dL (11.7-16.9); LYMPH % 22.8 % (8-40); MCH 28.2 pg (25.7-33.7); MCHC 33.2 g/dl (32.0-35.9); MEAN PLT VOLUME 8.9 fl (7.5-11.1); MONO % 9.5 % (3.8-10.2); NEUT % 63.3 % (42.8-82.8); PLATELET COUNT 290 K/MM3 (134-434); RBC 4.77 M/mm3 (4.00-5.60); RDW 15.6 % (11.9-15.9); WHITE BLOOD COUNT 7.5 K/mm3 (4.0-10.0)
[2018-11-08 08:50] LABS: ALBUMIN 3.5 g/dl (3.4-5.0); BILIRUBIN,TOTAL 0.4 mg/dL (0.2-1); BLOOD UREA NITROGEN 12.7 mg/dL (7-18); CALCIUM 9.2 mg/dL (8.5-10.1); CREATININE 0.6 mg/dL (0.55-1.3); MAGNESIUM 2.4 mg/dL (1.8-2.4); PHOSPHOROUS 3.8 mg/dL (2.5-4.9); POTASSIUM 4.3 mmol/L (3.5-5.1); TOT PROT 7.6 g/dl (6.4-8.2)
--- NOTE | 2018-11-08 09:03 | EKG ---
Test Reason : Blood Pressure : / mmHG Vent. Rate : 060 BPM Atrial Rate : 060 BPM P-R Int : 208 ms QRS Dur : 096 ms QT Int : 430 ms P-R-T Axes : 017 -07 030 degrees QTc Int : 430 ms NORMAL SINUS RHYTHM MODERATE VOLTAGE CRITERIA FOR LVH, MAY BE NORMAL VARIANT BORDERLINE ECG WHEN COMPARED WITH ECG OF 06-NOV-2018 10:18, NO SIGNIFICANT CHANGE WAS FOUND Confirmed by EVI CARNEY MD ([id number]) on 11/08/2018 9:03:25 AM Referred By: Confirmed By:EVI CARNEY MD
[2018-11-08] MEDS: ASPIRIN COATED 81 MG TABLET.EC PO SCH (09:07)
[2018-11-08] MEDS: amLODIPine BESYLATE 5 MG TABLET (FP) PO SCH (09:08)
--- NOTE | 2018-11-08 09:13 | CON.CARD ---
Consult Consult Specialty:: Cardiology Referred by:: Hospitalist Reason for Consultation:: Cardiac evaluation (Coverage for Drs. Martines/ Judy) - History of Present Illness Chief Complaint: Tongue heaviness History of Present Illness: Patient is a 48 year old male with underlying history of AAA repair and HTN who presents with tongue heaviness. He was seen in the ED on 11/06/18 but was discharged home and to return to [facility] with persistent complaint. He denies chest pain, shortness of breath or palpitations. He denies paroxysmal nocturnal dyspnea or orthopnea. He denies fever or chills. He denies nausea, vomiting, diarrhea or abdominal pain. He denies headache or lightheadedness. Denies facial drooping or weakness. - History Source History Provided By: Patient, Medical Record Limitations to Obtaining History: No Limitations - Past Medical History Cardio/Vascular: Yes: Aneurysm, HTN - Past Surgical History Past Surgical History: Yes: AAA Repair - Alcohol/Substance Use Hx Alcohol Use: No - Smoking History Smoking history: Never smoked Have you smoked in the past 12 months: No Aproximately how many cigarettes per day: 0 Home Medications - Allergies Allergies/Adverse Reactions: Allergies Allergy/AdvReac Type Severity Reaction Status Date / Time No Known Allergies Allergy Verified 11/07/18 13:45 - Home Medications Home Medications: Ambulatory Orders Losartan Potassium [Cozaar -] 25 mg PO DAILY #0 tablet 04/21/13 Metoprolol Tartrate [Lopressor -] 25 mg PO DAILY #0 tab 04/21/13 Ondansetron [Zofran Odt -] 8 mg SL TID PRN #21 od.tablet 01/18/15 Oxycodone HCl/Acetaminophen [Percocet 10-325 mg Tablet] 1 tab PO Q6H PRN #4 tablet 01/18/15 Family Disease History - Family Disease History Family Disease History: Heart Disease: Father, Brother, Other: Mother (Mother still living, H/O aneurysms. ) Review of Systems - Review of Systems Constitutional: denies: Chills, Fever Cardiovascular: denies: Chest Pain, Palpitations, Shortness of Breath Respiratory: denies: Cough, Hemoptysis, Orthopnea, PND, SOB, SOB on Exertion Gastrointestinal: denies: Abdominal Pain, Constipation, Diarrhea, Melena, Nausea , Rectal Bleeding, Vomiting Neurological: denies: Dizziness, Headache, Seizure, Syncope Vital Signs: Vital Signs Temperature 98.0 F 11/08/18 07:57 Pulse Rate 65 11/08/18 07:57 Respiratory Rate 18 11/08/18 08:02 Blood Pressure 126/72 11/08/18 07:57 O2 Sat by Pulse Oximetry (%) 95 11/08/18 08:02 HENT: Yes: Atraumatic Neck: Yes: Supple Respiratory: Yes: Regular, CTA Bilaterally Gastrointestinal: Yes: Normal Bowel Sounds, Soft. No: Tenderness Cardiovascular: Yes: Regular Rate and Rhythm JVD: No Carotid Bruit: No PMI: Non-Displaced Heart Sounds: Yes: S1, S2 Murmur: No: Systolic Murmur, Diastolic Murmur Edema: No - Other Data Labs, Other Data: CBC, BMP 11/08/18 06:50 11/08/18 06:50 INR, PTT INR 1.13 (0.83-1.09) H 11/07/18 16:39 Troponin, BNP 11/07/18 15:05 Troponin I < 0.02 Normal sinus rhythm, normal ECG Imaging - Results Cat Scan: Report Reviewed (Head CT unremarkable) Ultrasound: Report Reviewed (Carotid Doppler unremarkable) MRI: Report Reviewed (Brain MRI unremarkable) EKG: Report Reviewed Problem List - Problems (1) Slurred speech Code(s): R47.81 - SLURRED SPEECH (2) AAA (abdominal aortic aneurysm) Code(s): I71.4 - ABDOMINAL AORTIC ANEURYSM, WITHOUT RUPTURE Qualifiers: Presence of rupture: without rupture Qualified Code(s): I71.4 - Abdominal aortic aneurysm, without rupture (3) HTN (hypertension) Code(s): I10 - ESSENTIAL (PRIMARY) HYPERTENSION Qualifiers: Hypertension type: essential hypertension Qualified Code(s): I10 - Essential (primary) hypertension Assessment/Plan 1. Tongue heaviness, etiology? 2. HTN PLAN: 1. Continue Losartan 25 mg QD, Metoprolol 25 mg QD and Amlodipine 5 mg QD 2. Atorvastatin 80 mg QD 3. ASA 81 mg QD 4. Echocardiography to assess LV/RV and valvular function Further plans are to follow Doe Resendez MD
[2018-11-08] MEDS ORDERED: METOPROLOL TARTRATE 25 MG TABLET (FP) PO SCH ×2 (10:00)
[2018-11-08] MEDS ORDERED: ENOXAPARIN NA (PORCINE) 40 MG/0.4 ML DISP.SYRIN SQ SCH (10:00)
[2018-11-08] MEDS ORDERED: LOSARTAN POTASSIUM 25 MG TABLET PO SCH (10:00)
--- NOTE | 2018-11-08 12:01 | PN ---
Progress Note (short form) - Note Progress Note: SUBJECTIVE: Tongue heaviness and itching improving. No difficulty swallowing or breathing. No further episode sof slurred speech. No limb numbness/weakness/ tingling/fits/faints/blackouts/seizures. headache resolved. No visual disturbance/nausea/vomiting OBJECTIVE: Afebrile, Hemodnamically Stable. Last Vital Signs Temp Pulse Resp BP Pulse Ox 98.0 F 65 18 126/72 95 11/08/18 07:57 11/08/18 07:57 11/08/18 08:02 11/08/18 07:57 11/08/18 08:02 HEENT - Atramatic, Normocephalic. Clearing oral secretions. Tongue - normal size /appearance. No stridor. Heart - S1, S2, RRR Lungs - clear to auscultation, no crackles/wheeze. Abdomen - High BMI. Soft, non-tender. Bowel Sounds normal. Extremities - No edema, varicose veins, no calf tenderness Neuro - AAO x 3. Tone/Power normal all 4 extremities. lithographic etcher intact. EOMI. BRIANNA. Laboratory Results - last 24 hr 11/07/18 11/07/18 11/07/18 15:05 15:05 15:05 WBC 7.8 RBC 4.77 Hgb 13.4 Hct 40.2 MCV 84.4 MCH 28.0 MCHC 33.2 RDW 15.5 Plt Count 292 MPV 9.4 D Absolute Neuts (auto) 4.5 Neutrophils % 58.0 Lymphocytes % 27.7 D Monocytes % 10.5 H Eosinophils % 2.7 Basophils % 1.1 Nucleated RBC % 0 PT with INR INR Sodium 140 Potassium 5.9 H Chloride 107 Carbon Dioxide 28 Anion Gap 6 L BUN 11.6 Creatinine 0.7 Est GFR (CKD-EPI)AfAm 130.25 Est GFR (CKD-EPI)NonAf 112.38 Random Glucose 75 Hemoglobin A1c % Calcium 9.1 Phosphorus Magnesium 2.4 Total Bilirubin 0.6 AST 65 H ALT 39 Alkaline Phosphatase 67 Troponin I < 0.02 Total Protein 7.9 Albumin 3.5 Triglycerides Cholesterol Total LDL Cholesterol HDL Cholesterol TSH 11/07/18 11/07/18 11/07/18 15:05 16:39 19:07 WBC RBC Hgb Hct MCV MCH MCHC RDW Plt Count MPV Absolute Neuts (auto) Neutrophils % Lymphocytes % Monocytes % Eosinophils % Basophils % Nucleated RBC % PT with INR Cancelled 13.30 H INR Cancelled 1.13 H Sodium 141 Potassium 4.1 Chloride 107 Carbon Dioxide 30 Anion Gap 5 L BUN 11.6 Creatinine 0.6 Est GFR (CKD-EPI)AfAm 138.77 Est GFR (CKD-EPI)NonAf 119.73 Random Glucose 99 Hemoglobin A1c % Calcium 9.4 Phosphorus Magnesium Total Bilirubin AST ALT Alkaline Phosphatase Troponin I Total Protein Albumin Triglycerides Cholesterol Total LDL Cholesterol HDL Cholesterol TSH 11/08/18 11/08/18 11/08/18 06:50 06:50 06:50 WBC 7.5 RBC 4.77 Hgb 13.4 Hct 40.5 MCV 85.0 MCH 28.2 MCHC 33.2 RDW 15.6 Plt Count 290 MPV 8.9 Absolute Neuts (auto) 4.8 Neutrophils % 63.3 Lymphocytes % 22.8 Monocytes % 9.5 Eosinophils % 3.3 Basophils % 1.1 Nucleated RBC % 0 PT with INR INR Sodium 142 Potassium 4.3 Chloride 106 Carbon Dioxide 30 Anion Gap 6 L BUN 12.7 Creatinine 0.6 Est GFR (CKD-EPI)AfAm 138.77 Est GFR (CKD-EPI)NonAf 119.73 Random Glucose 88 Hemoglobin A1c % 5.7 Calcium 9.2 Phosphorus 3.8 Magnesium 2.4 Total Bilirubin 0.4 AST 26 ALT 38 Alkaline Phosphatase 80 Troponin I Total Protein 7.6 Albumin 3.5 Triglycerides 112 Cholesterol 191 Total LDL Cholesterol 120 H HDL Cholesterol 49 TSH 1.53 Current Medications Generic Name Dose Route Start Last Admin Trade Name Freq PRN Reason Stop Dose Admin Acetaminophen 650 mg 11/08/18 04:28 11/08/18 04:35 Tylenol - PO 650 mg Q6H PRN Administration Fever Or Pain Level 1-5 Amlodipine Besylate 5 mg 11/08/18 10:00 11/08/18 09:08 Norvasc - PO 5 mg DAILY CALVIN Administration Aspirin 81 mg 11/07/18 19:00 11/08/18 09:07 Ecotrin - PO 81 mg DAILY CALVIN Administration Atorvastatin Calcium 80 mg 11/08/18 22:00 Lipitor - PO HS CALVIN Diphenhydramine HCl 25 mg 11/07/18 18:37 Benadryl - PO HS PRN INSOMNIA Losartan Potassium 25 mg 11/08/18 10:00 Cozaar - PO DAILY CALVIN Metoprolol Tartrate 25 mg 11/08/18 10:00 11/08/18 09:08 Lopressor - PO 25 mg DAILY [facility] Administration Home Medications Medication Instructions Recorded Losartan Potassium [Cozaar -] 25 mg PO DAILY #0 tablet 04/21/13 Metoprolol Tartrate [Lopressor -] 25 mg PO DAILY #0 tab 04/21/13 Ondansetron [Zofran Odt -] 8 mg SL TID PRN #21 od.tablet 01/18/15 Oxycodone HCl/Acetaminophen 1 tab PO Q6H PRN #4 tablet 01/18/15 [Percocet 10-325 mg Tablet] ASSESSMENT AND PLAN: 48 year old male with HTN, AAA s/p repair 2013, presents with 2 day history of tongue heaviness, itching, episode of slurred speech 11/07 (spontaneously resolved ). No difficulty swallowing or breathing. No visual disturbance/nausea/vomiting or limb numbness/weakness/tingling. No LOC or HI. No fever/chills. 1. Tongue Heaviness/Itching - improving, no evidence of CVA, likely Allergy CT brain neg MRI/MRA Brain - neg for acute intracranial infarct; no stenosis/dissection/ occlusion. ECG - NSR, no acute changes. Carotid Duplex - negative for hemodynamically significant disease. Echo pending. Neurology consulted. Continue Telemetry monitoring. Regular neurochecks. Losartan held. Benadryl prn Fasting Lipid Profile - LDL 120 ASA/Statin started pending Neuro eval. 2. HTN - continue Metoprolol. Losartan held, substituted with Norvasc 5mg. 3. AAA s/p repair 2013 - continue BB DVT Px - Heparin SQ Visit type - Emergency Visit Emergency Visit: Yes ED Registration Date: 11/07/18 Care time: The patient presented to the Emergency Department on the above date and was hospitalized for further evaluation of their emergent condition. - New Patient This patient is new to me today: No - Critical Care Critical Care patient: No - Discharge Referral Referred to [facility] No
--- NOTE | 2018-11-08 13:40 | CONSULT ---
Consult - text type - Consultation Consultation Note: NEUROLOGY CONSULTATION is greatly appreciated: Events and neuro imaging reviewed. Patient examined with his at the bedside who aides in translation. 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 PMH sig for HTN and repair of abdominal aortic aneurysm. On metoprolol 25 qd and recently losartan started. Given amlodipine in ED. Admitted after two days of waxing and waning numbness and heaviness of his tongue with brief slurring of speech and persistent occipital headache, now resolved. Pt has headaches approximately 1/month often after drinking as little as 1 glass of wine. Dull holocranial throbbing. No associated symptoms. Strongly + FH of severe migraines in his mother, sister, and daughter. Mother also had cerebral aneyrysm. MRI of brain (C-) MR Angio and carotid duplex (all reviewed): All normal JOE: Neck supple. Neg Kernigs. No bruits. Obese (312 lbs). NEURO: MS/speech; Normal. CN II-XII: normal including tongue ARLETH's, gag Motor: No drift or tremor. Normal strength, bulk, tone and reflexes. Toes downgoing. Coord: No FTN dystaxia Sensory: Normal Gait: Normal IMP: Normal neurological exam Migraine Headaches. Perioral paresthesia and dysarthria most like due to complicated vertebrobasilar migraine. SUGGEST: Increase metoprolol ER to 50 mg/ day for migraine prophylaxis. Stable for discharge. Neuro f/u as out patient. Thank you very much, Feliz Valdes MD
[2018-11-08] MEDS ORDERED: METOPROLOL TARTRATE 25 MG TABLET (FP) PO ONE (18:07)
[2018-11-08] MEDS ORDERED: ATORVASTATIN CA 80 MG TABLET (FP) PO SCH (22:00)
[2018-11-09] MEDS: amLODIPine BESYLATE 5 MG TABLET (FP) PO SCH (09:42)
[2018-11-09] MEDS ORDERED: METOPROLOL TARTRATE 50 MG TABLET (FP) PO SCH (10:00)
--- NOTE | 2018-11-09 12:02 | PN ---
Teaching Attending Note Name of Resident: Faiza Purvis ATTENDING PHYSICIAN STATEMENT I saw and evaluated the patient. I reviewed the resident's note and discussed the case with the resident. I agree with the resident's findings and plan as documented. SUBJECTIVE: Tongue heaviness and itching improved. No difficulty swallowing or breathing. No further episodes of slurred speech. No limb numbness/weakness/ tingling/fits/faints/blackouts/seizures. Headache resolved. No visual disturbance/nausea/vomiting OBJECTIVE: Afebrile, Hemodnamically Stable. Last Vital Signs Temp Pulse Resp BP Pulse Ox 97.8 F 80 20 141/86 95 11/09/18 06:01 11/09/18 10:00 11/09/18 10:00 11/09/18 10:11/09/18 09:00 HEENT - Atramatic, Normocephalic. Clearing oral secretions. Tongue - normal size /appearance. No stridor. Heart - S1, S2, RRR Lungs - clear to auscultation, no crackles/wheeze. Abdomen - High BMI. Soft, non-tender. Bowel Sounds normal. Extremities - No edema, varicose veins, no calf tenderness Neuro - AAO x 3. Tone/Power normal all 4 extremities. wardrobe assistant intact. EOMI. BRIANNA. Current Medications Generic Name Dose Route Start Last Admin Trade Name Freq PRN Reason Stop Dose Admin Acetaminophen 650 mg 11/08/18 04:28 11/08/18 04:35 Tylenol - PO 650 mg Q6H PRN Administration Fever Or Pain Level 1-5 Amlodipine Besylate 5 mg 11/08/18 10:00 11/09/18 09:42 Norvasc - PO 5 mg DAILY CALVIN Administration Metoprolol Tartrate 50 mg 11/09/18 10:00 11/09/18 09:43 Lopressor - PO 50 mg DAILY CALVIN Administration Home Medications Medication Instructions Recorded Losartan Potassium [Cozaar -] 25 mg PO DAILY #0 tablet 04/21/13 Metoprolol Tartrate [Lopressor -] 25 mg PO DAILY #0 tab 04/21/13 Ondansetron [Zofran Odt -] 8 mg SL TID PRN #21 od.tablet 01/18/15 Oxycodone HCl/Acetaminophen 1 tab PO Q6H PRN #4 tablet 01/18/15 [Percocet 10-325 mg Tablet] ASSESSMENT AND PLAN: 48 year old male with HTN, AAA s/p repair 2013, presents with 2 day history of tongue heaviness, itching, episode of slurred speech 11/07 (spontaneously resolved ). No difficulty swallowing or breathing. No visual disturbance/nausea/vomiting or limb numbness/weakness/tingling. No LOC or HI. No fever/chills. 1. Tongue Heaviness/Itching - improved, no evidence of CVA, likely Allergy CT brain neg MRI/MRA Brain - neg for acute intracranial infarct; no stenosis/dissection/ occlusion. ECG - NSR, no acute changes. Carotid Duplex - negative for hemodynamically significant disease. Echo pending. Neurology evaluated and is considering complicated vertebrobasilar migraine Recommends increasing Metoprolol to 50mg for Migraine prophylaxis. Will continue to hold Losartan 2. HTN - continue Metoprolol. Losartan held, substituted with Norvasc 5mg. Can re-challenge with Losartan in 2 weeks by out-patient PCP/Cardiology to determine if tongue paresthesia recurs on resumption of ARB. 3. AAA s/p repair 2013 - continue BB DVT Px - Heparin SQ Medically and Neurologicaly stable for discharge pending Echocardiogram.
--- NOTE | 2018-11-09 14:02 | ECHO ---
Name: SUSANNE DUNN Exam:Adult Echocardiogram Study Date: 11/09/2018 10:11 AM Age: 48 yrs Reason For Study: with bubbles - ?TIA Height: 71 in Weight: 315 lb BSA: 2.6 m2 MMode/2D Measurements & Calculations IVSd: 0.96 cm Ao root diam: 4.6 cm LVIDd: 5.4 cm LA dimension: 4.1 cm LVIDs: 3.7 cm ACS: 2.2 cm LVPWd: 0.90 cm IVSs: 1.2 cm LVPWs: 1.2 cm EDV(Teich): 140.1 ml ESV(Teich): 58.8 ml Doppler Measurements & Calculations MV E max vicente: 52.1 cm/sec Ao V2 max: 115.6 cm/sec MV A max vicente: 58.0 cm/sec Ao max P.3 mmHg MV E/A: 0.90 Ao V2 mean: 79.6 cm/sec Ao mean P.8 mmHg Ao V2 VTI: 25.2 cm Med Peak E' Vicente: 5.6 cm/sec Med E/e': 9.3 Lat Peak E' Vicente: 5.0 cm/sec Lat E/e': 10.3 Procedure A complete two-dimensional transthoracic echocardiogram was performed (2D, M-mode, Doppler and color flow Doppler). Left Ventricle The left ventricle is normal in size. Left ventricular systolic function is normal. Ejection Fraction = 60- 65%. No regional wall motion abnormalities noted. Right Ventricle The right ventricle is normal size. The right ventricular systolic function is normal. Atria The left atrial size is normal. Right atrial size is normal. Mitral Valve The mitral valve is normal in structure and function. There is no mitral regurgitation noted. Tricuspid Valve The tricuspid valve is normal in structure and function. No tricuspid regurgitation. Aortic Valve There is mild aortic sclerosis.;. No aortic regurgitation is present. Pulmonic Valve The pulmonic valve is not well visualized. Great Vessels Moderate aortic root dilatation. Pericardium/Pleura There is no pericardial effusion. Interpretation Summary The left ventricle is normal in size. Left ventricular systolic function is normal. No regional wall motion abnormalities noted. Ejection Fraction = 60-65%. The right ventricular systolic function is normal. The left atrial size is normal. Right atrial size is normal. There is mild aortic sclerosis.; Moderate aortic root dilatation. No significant valvular regurgitations are seen Saline contrast injection at rest and post valsalve reveals no evidence of inracardiac shunt. There is no pericardial effusion. Previous study is not available for comparison Doe Resendez MD 11/09/2018 02:02 PM
[2018-11-09 15:00] VITALS: BP 141/91; PULSE 73; TEMP 98.6
--- NOTE | 2018-11-17 15:21 | DS ---
Physical Exam: Date of Admission:11/07/18 MR Brain Impression: No evidence of aneurysm of [place] of [place]. No evidence of basilar artery stenosis, dissection or occlusion. The visualized portions of the vertebral arteries are tortuous and unremarkable with no evidence of stenosis or dissection or occlusion. MR Brain with contrast Impression: No evidence of acute infarct. No evidence of intra or extra-axial neoplasm at this noncontrast study. No evidence of intracerebral hemorrhage, subdural fluid collection or hydrocephalus. The brainstem is unremarkable with no evidence of infarction or mass lesions Head CT: Impression: No CT evidence of acute intracranial pathology is identified. There is suggestion of Chiari malformation type I with crowding of the cerebellar tonsils on the foramen magnum for which correlation with a nonemergent MRI of the brain is needed. HOSPITAL COURSE: 48 yo M PMH of HTN and AAA presented to the ED with tongue heaviness and headache. pt is admitted to r/o TIA. Pt had CT head, MRI/ MRA the results were reviewed. please see above. pt was evaluated by neurology. pt had an echo bubble study and carotid u/s which were negative. pt was observed on telemetry with no acute events. Pt was evaluated by speech and swallow. Pt was on cozaar at home and instructed to discontinue as that may be the cause of his symptoms possibly 2/2 angioedema. pt counselled on lifestyle mgmt. Pt recommended to f/u with PCP and cardiology. Date of Discharge: 11/09/18 Minutes to complete discharge: 36 Discharge Summary Reason For Visit: SLURRED SPEECH/HEADACHE Condition: Improved - Instructions Diet, Activity, Other Instructions: You came into the hospital with difficulty speaking and unusual sensations of your tongue. We did imaging of your brain which was negative for any stroke. Your home medication, Losartan, was also discontinued as it is possible to have caused an allergic reaction. Please stop taking this medication, until you see a television and radio repairer or your primary care doctor. You were started on a new medication , Amlodipine for your high blood pressure. Medications: 1. You should increase your home dose of Metoprolol to 50 mg daily. 2. You should take Amlodipine 5 mg daily. 3. Please do NOT continue to take Losartan. Follow-ups: 1. You should follow up with the neurologist, Dr. Valdes, in 1 week to follow up with your improvement. 2. You should follow up with your primary care physician in 1 week to monitor your blood pressure and your cholesterol, as it may be beneficial for you to start taking a cholesterol medication. 3. You should follow up with your television and radio repairer, Dr. Kim, for a trial of losartan, as this may have been the cause of your tongue symptoms. Please continue to monitor your sodium intake. Please continue to maintain a healthy lifestyle and exercise. Please return to the ER if you have any signs or symptoms of chest pain, shortness of breath, uncontrollable fever, chills, nausea, vomiting, numbness, tingling, or weakness in any part of your body, changes in vision, or slurred speech. Please return to the ER if symptoms persist, worsen, or new symptoms arise. Referrals: [facility] [place] [Provider Group] Feliz Valdes MD [Staff Physician] - Bhavin Kim MD [Staff Physician] - Disposition: HOME - Home Medications Comprehensive Discharge Medication List: Ambulatory Orders Amlodipine Besylate [Norvasc -] 5 mg PO DAILY #30 tablet 11/09/18 Metoprolol Tartrate [Lopressor -] 50 mg PO DAILY #30 tablet 11/09/18 This patient is new to me today: No Emergency Visit: No Critical Care patient: No - Discharge Referral Referred to [facility] No ATTENDING PHYSICIAN STATEMENT I saw and evaluated the patient. I reviewed the resident's note and discussed the case with the resident. I agree with the resident's findings and plan as documented. SUBJECTIVE: OBJECTIVE: ASSESSMENT AND PLAN:
== END 2018-11-09 15:26 | disposition home or self-care (01) | DRG 54 ==
LOC: JER 13:36 → JERBED 15:38 → J4W 21:16
DX: G43.909 Migraine, unspecified, not intractable, without status migrainosus (principal); Z68.41 Body mass index [BMI] 40.0-44.9, adult; I10 Essential (primary) hypertension; E66.9 Obesity, unspecified; R47.81 Slurred speech; R20.0 Anesthesia of skin; R47.1 Dysarthria and anarthria; R20.2 Paresthesia of skin
CPT/HCPCS: 36415; 70450-TC; 70544-TC; 70551-TC; 80048; 80053; 80061; 83036; 83721; 83735; 84100; 84132; 84443; 84484; 85025; 85610; 93005; 93010; 93306-TC; 93880-TC; 97116-GP; 97161-GP; 99284-25

== ENCOUNTER 2019-02-18 21:53 | Emergency (ER) | payer SELFPAY ==
[2019-02-18 21:58] VITALS: BMI 42.4
[2019-02-18 22:42] LABS: BASO % 1.1 % (0-2.0); EOS % 2.5 % (0-4.5); HEMATOCRIT 40.3 % (35.4-49); HEMOGLOBIN 13.2 GM/dL (11.7-16.9); LYMPH % 21.1 % (8-40); MCH 28.1 pg (25.7-33.7); MCHC 32.8 g/dl (32.0-35.9); MEAN CELL VOLUME 85.5 fl (80-96); MEAN PLT VOLUME 8.7 fl (7.5-11.1); MONO % 12.5 % (3.8-10.2); NEUT % 62.8 % (42.8-82.8); PLATELET COUNT 274 K/MM3 (134-434); RBC 4.72 M/mm3 (4.00-5.60); RDW 15.4 % (11.9-15.9); WHITE BLOOD COUNT 9.9 K/mm3 (4.0-10.0)
[2019-02-18] MEDS ORDERED: ACETAMINOPHEN 1000 MG/100 ML VIAL (NON FORMULARY) IVPB ONE (22:56)
[2019-02-18] MEDS ORDERED: ONDANSETRON 4 MG/2 ML VIAL ONE (23:04)
[2019-02-18] MEDS ORDERED: ONDANSETRON 4 MG/2 ML VIAL IVPUSH ONE (23:04)
[2019-02-18] MEDS ORDERED: ACETAMINOPHEN INJECTION 100 ML IVPB ONE (23:04)
--- NOTE | 2019-02-18 23:05 | PDOC ---
History of Present Illness - General Chief Complaint: Chest Pain Stated Complaint: CHEST PAIN Time Seen by Provider: 02/18/19 22:42 History Source: Patient Exam Limitations: No Limitations - History of Present Illness Initial Comments: 02/19/19 03:38 49 yo M with a hx of HTN, cholelithiasis, nephrolithiasis, and AAA (repaired 2013 at [facility]) presents to the emergency department with RUQ pain that began this morning after consuming toast with cheese. Per the patient, the pain has radiation to the center upper of the abdomen, 10/10 at its worst, similar feeling to kidney stone pain, without the following symptoms: vomiting, fevers, SOB, and chest pain. The pain is intermittent in nature. Denies the following: dysuria, hematuria, urinary urgency, urinary frequency, diarrhea, hematochezia, melena, and constipation. Allergies: NKDA Past History - Past Medical History Allergies/Adverse Reactions: Allergies Allergy/AdvReac Type Severity Reaction Status Date / Time No Known Allergies Allergy Verified 02/19/19 02:48 Home Medications: Ambulatory Orders Amlodipine Besylate [Norvasc -] 5 mg PO DAILY #30 tablet 11/09/18 Metoprolol Tartrate [Lopressor -] 50 mg PO DAILY #30 tablet 11/09/18 Anemia: No Asthma: No COPD: No Dementia: No GI Disorders: No Disorders: No HTN: Yes Thyroid Disease: No - Surgical History Abdominal Surgery: Yes (AAA REPAIR 04/12/13, stent replaced 01/07/2014) Cardiac Surgery: No Lung Surgery: No - Immunization History Immunization Up to Date: Yes - Psycho Social/Smoking Cessation Hx Smoking History: Never smoked Have you smoked in the past 12 months: No Number of Cigarettes Smoked Daily: 0 Hx Alcohol Use: No Drug/Substance Use Hx: No Substance Use Type: None Hx Substance Use Treatment: No Review of Systems - Review of Systems Able to Perform ROS?: Yes Is the patient limited Monegasque proficient: No Constitutional: No: Chills, Diaphoresis, Fever, Weakness HEENTM: No: Eye Pain, Ear Pain, Nose Pain, Throat Pain, Mouth Pain Respiratory: No: Cough, Shortness of Breath, Hemoptysis Cardiac (ROS): No: Chest Pain, Lightheadedness, Palpitations, Syncope, Chest Tightness ABD/GI: Yes: Abdominal cramping (RUQ). No: Constipated, Diarrhea, Nausea, Rectal Bleeding, Vomiting, Tarry Stools : Yes: Flank Pain (right). No: Burning, Dysuria, Hematuria, Incontinence Musculoskeletal: No: Back Pain, Joint Pain, Neck Pain Integumentary: No: Bruising, Erythema, Rash Neurological: No: Headache, Numbness, Tingling, Tremors Psychiatric: No: Change in Appetite Endocrine: No: Unexplained Weight Gain Hematologic/Lymphatic: No: Anemia *Physical Exam - Vital Signs Last Vital Signs Temp Pulse Resp BP Pulse Ox 98.4 F 80 19 185/94 H 96 02/18/19 21:55 02/18/19 21:55 02/18/19 21:55 02/18/19 21:55 02/18/19 21:55 - Physical Exam General Appearance: Yes: Nourished, Appropriately Dressed, Obese. No: Apparent Distress, Intoxicated HEENT: positive: EOMI, BRIANNA, Normal Voice, Symmetrical, Pharynx Normal, Hearing Grossly Normal. negative: Pale Conjunctivae, Scleral Icterus (R), Scleral Icterus (L), Muffled/Hoarse voice, Pharyngeal Erythema, Tonsillar Exudate, Tonsillar Erythema, Excessive drooling Neck: positive: Trachea midline, Supple. negative: Tender, Lymphadenopathy (R) , Lymphadenopathy (L), Tender lateral, Tender midline Respiratory/Chest: positive: Lungs Clear, Normal Breath Sounds. negative: Chest Tender, Respiratory Distress, Accessory Muscle Use Cardiovascular: positive: Regular Rhythm, Regular Rate, S1, S2. negative: Systolic Murmur Gastrointestinal/Abdominal: positive: Normal Bowel Sounds, Tender (RUQ, epigastric), Flat, Soft. negative: Distended, Guarding, Rebound Lymphatic: negative: Adenopathy Musculoskeletal: positive: Normal Inspection. negative: CVA Tenderness, Vertebral Tenderness Extremity: positive: Normal Capillary Refill, Normal Inspection, Normal Range of Motion, Other (pulses in dorsalis pedis and posterior tibialis bilaterally 2+ . warm leg without mottling bilaterally). negative: Tender, Swelling, Calf Tenderness Integumentary: positive: Normal Color, Dry, Warm. 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 negative: Numbness, Sensory Deficit, Finger to Nose ED Treatment Course - LABORATORY CBC & Chemistry Diagram: 02/18/19 22:28 02/18/19 22:28 - ADDITIONAL ORDERS Additional order review: 02/18/19 22:28 RBC 4.72 MCV 85.5 MCHC 32.8 RDW 15.4 MPV 8.7 Neutrophils % 62.8 Lymphocytes % 21.1 Monocytes % 12.5 H Eosinophils % 2.5 Basophils % 1.1 - RADIOLOGY Radiology Studies Ordered: Category Date Time Status CHEST X-RAY PORTABLE* [RAD] Stat Radiology 02/18/19 22:52 Ordered Medical Decision Making - Medical Decision Making 49 yo M with a hx of HTN, cholelithiasis, nephrolithiasis, and AAA (repaired 2013 at [facility]) presents to the emergency department with RUQ pain that began this morning after consuming toast with cheese. Initial vitals; Initial Vital Signs Temp Pulse Resp BP Pulse Ox 98.4 F 80 19 185/94 H 96 02/18/19 21:55 02/18/19 21:55 02/18/19 21:55 02/18/19 21:55 02/18/19 21:55 Work up: ddx: patient presents with RUQ pain in the setting of known cholelithiasis and nephrolithiasis history. pain colicky in nature making biliary colic vs nephrolithiasis likely. however given his history of AAA repair and radiation of pain to the epigastric region, will assess patency of the aorta to ensure no endo leak. Patient denies nausea and vomiting. no hx of pancreatitis. will obtain cbc, cmp, trops, lipase, ua, urine culture, ekg, cxr, and abdomen CTA with run off given extensive pathology in the past to his iliac arteries. Laboratory Tests 02/18/19 02/18/19 02/18/19 22:28 22:28 23:32 WBC 9.9 RBC 4.72 Hgb 13.2 Hct 40.3 MCV 85.5 MCH 28.1 MCHC 32.8 RDW 15.4 Plt Count 274 MPV 8.7 Absolute Neuts (auto) 6.2 Neutrophils % 62.8 Lymphocytes % 21.1 Monocytes % 12.5 H Eosinophils % 2.5 Basophils % 1.1 Nucleated RBC % 0 Sodium 141 Potassium 4.1 Chloride 106 Carbon Dioxide 26 Anion Gap 8 BUN 16.0 Creatinine 0.8 Est GFR (CKD-EPI)AfAm 122.43 Est GFR (CKD-EPI)NonAf 105.63 Random Glucose 106 Calcium 9.3 Total Bilirubin 0.4 AST 27 ALT 26 Alkaline Phosphatase 66 Creatine Kinase 111 Troponin I < 0.02 Total Protein 7.3 Albumin 3.5 Lipase 107 Urine Color Yellow Urine Appearance Clear Urine pH 6.5 D Ur Specific [place] 1.014 Urine Protein Negative Urine Glucose (UA) Negative Urine Ketones Negative Urine Blood 1+ H Urine Nitrite Negative Urine Bilirubin Negative Urine Urobilinogen 0.2 Ur Leukocyte Esterase Negative Urine WBC (Auto) 0 Urine RBC (Auto) 11 Urine Casts (Auto) 0 U Epithel Cells (Auto) 0.4 Urine Bacteria (Auto) 0.3 patient's UA shows blood which is consistent with nephrolithiasis. Creatinine within normal limits without leukocytosis. CXR was within normal limits. RUQ US was done and it shows small sludge within the galbladder with stones without signs of acute cholecystitis. no flow was seen into the left common iliac artery. A CTA abdomen with run off was ordered and pending at the time of sign out. The patient was signed out to Dr. Steele. 02/19/19 11:14 Discharge - Discharge Information Problems reviewed: Yes Clinical Impression/Diagnosis: Abdominal pain Qualifiers: Abdominal location: right upper quadrant Qualified Code(s): R10.11 - Right upper quadrant pain - Follow up/Referral Referrals: Hortensia Wetzel MD [Primary Care Provider] - Dick Puente MD [Staff Physician] - - Patient Discharge Instructions Patient Printed Discharge Instructions: DI for Chest Pain Additional Instructions: Follow up with Dr. Puente in the morning and make appointment HOLLY. Come back to the emergency department for any new, worsening or concerning symptoms. - Post Discharge Activity
[2019-02-18 23:29] LABS: ALBUMIN 3.5 g/dl (3.4-5.0); ALK PHOS 66 U/L (45-117); ANION GAP 8 MMOL/L (8-16); BILIRUBIN,TOTAL 0.4 mg/dL (0.2-1); CALCIUM 9.3 mg/dL (8.5-10.1); CHLORIDE 106 mmol/L (98-107); CO2 26 mmol/L (21-32); CREATININE 0.8 mg/dL (0.55-1.3); GLUCOSE,RANDOM 106 mg/dL (74-106); LIPASE 107 U/L (73-393); POTASSIUM 4.1 mmol/L (3.5-5.1); SGOT/AST 27 U/L (15-37); SGPT/ALT 26 U/L (13-61); SODIUM 141 mmol/L (136-145); TOT PROT 7.3 g/dl (6.4-8.2)
[2019-02-18 23:53] LABS: EPI CELLS 0.4 /HPF (0-5/HPF); HYALINE CASTS 0 /lpf (0-8); PH,URINE 6.5 (5.0-8.0); URINE APPEARANCE CLEAR; URINE BACTERIA 0.3 /hpf (NEGATIVE); URINE BILIRUBIN NEGATIVE (NEGATIVE); URINE COLOR YELLOW; URINE GLUCOSE (UA) NEGATIVE (NEGATIVE); URINE KETONE NEGATIVE (NEGATIVE); URINE LEUK ESTERASE NEGATIVE (NEGATIVE); URINE NITRITE NEGATIVE (NEGATIVE); URINE PROTEIN NEGATIVE (NEGATIVE); URINE RBC 11 /hpf (0-4); URINE UROBILINOGEN 0.2 mg/dL (0.2-1.0); URINE WBC 0 /hpf (0-5)
--- NOTE | 2019-02-19 01:06 | PDOC ---
Documentation entered by Roxy Hawk SCRIBE, acting as scribe for Darline Santamaria MD. Darline Santamaria MD: This documentation has been prepared by the Carine trejo Brenda, SCRIBE, under my direction and personally reviewed by me in its entirety. I confirm that the documentation accurately reflects all work, treatment, procedures, and medical decision making performed by me. Attending Attestation - Resident Resident Name: IsaKp - ED Attending Attestation I have performed the following: I have examined & evaluated the patient, The case was reviewed & discussed with the resident, I agree w/resident's findings & plan, Exceptions are as noted - HPI HPI: 02/19/19 00:57 Mr Zavala is a 49 yo M h/o HTN and repaired AAA, biliary colic Pt presents to the ER with a complaint of abdominal pain Symptoms began this morning after eating toast with cheese He noted crampy right upper quadrant pain no radiation to the back, with radiation to the epigastrium No nausea No fevers or chills No diarrhea Patient was able to tolerate lunch today-rice and tuna No flank pain 02/19/19 00:59 Past medical history significant for EVAR 2014 (most recent CTA in our system from 2016) - Physicial Exam PE: 02/18/19 22:45 GENERAL: The patient is in no acute distress. ENT: Ears normal, nares patent, oropharynx clear without exudates. Moist mucous membranes. NECK: Normal range of motion, supple, no nuchal rigidity LUNGS: Breath sounds equal, clear to auscultation bilaterally. No wheezes, and no crackles. HEART: Regular rate and rhythm, normal S1 and S2 without murmur, rub or gallop. ABDOMEN: Soft, right upper quadrant tenderness, protuberant abdomen, no voluntary guarding, no rebound EXTREMITIES: Normal range of motion, no edema. NEUROLOGICAL: Cranial nerves II through XII grossly intact. Normal speech. No focal neurological deficits. SKIN: Warm, Dry, normal turgor, no rashes or lesions noted. 02/19/19 01:00 - Medical Decision Making 02/19/19 01:00 49-year-old male presented to emergency department with a complaint of abdominal pain Differential diagnosis includes but is not limited to: Biliary colic, cholecystitis, colitis, pancreatitis, ileus, SBO, endovascular leak We will do: Labs EKG CTA abdomen to evaluate for endoleak Right upper quadrant ultrasound Analgesia 02/19/19 01:06 Laboratory Tests 02/18/19 02/18/19 02/18/19 22:28 22:28 23:32 WBC 9.9 Hgb 13.2 Hct 40.3 Plt Count 274 BUN 16.0 Creatinine 0.8 Creatine Kinase 111 Troponin I < 0.02 Urine Blood 1+ H Urine Nitrite Negative Ur Leukocyte Esterase Negative Urine WBC (Auto) 0 Urine RBC (Auto) 11 Pt signed out to Dr Valencia pending imaging
[2019-02-19 03:26] VITALS: BP 131/71; PULSE 63; TEMP 98.2
--- NOTE | 2019-02-19 03:53 | PDOC ---
*Physical Exam - Vital Signs Last Vital Signs Temp Pulse Resp BP Pulse Ox 98.2 F 63 18 131/71 99 02/19/19 03:26 02/19/19 03:26 02/19/19 03:26 02/19/19 03:26 02/19/19 03:26 ED Treatment Course - LABORATORY CBC & Chemistry Diagram: 02/18/19 22:28 02/18/19 22:28 - ADDITIONAL ORDERS Additional order review: Laboratory Results 02/18/19 02/18/19 23:32 22:28 Sodium 141 Potassium 4.1 Chloride 106 Carbon Dioxide 26 Anion Gap 8 BUN 16.0 Creatinine 0.8 Est GFR (CKD-EPI)AfAm 122.43 Est GFR (CKD-EPI)NonAf 105.63 Random Glucose 106 Calcium 9.3 Total Bilirubin 0.4 AST 27 ALT 26 Alkaline Phosphatase 66 Creatine Kinase 111 Troponin I < 0.02 Total Protein 7.3 Albumin 3.5 Lipase 107 Urine Color Yellow Urine Appearance Clear Urine pH 6.5 D Ur Specific [place] 1.014 Urine Protein Negative Urine Glucose (UA) Negative Urine Ketones Negative Urine Blood 1+ H Urine Nitrite Negative Urine Bilirubin Negative Urine Urobilinogen 0.2 Ur Leukocyte Esterase Negative Urine WBC (Auto) 0 Urine RBC (Auto) 11 Urine Casts (Auto) 0 U Epithel Cells (Auto) 0.4 Urine Bacteria (Auto) 0.3 02/18/19 22:28 RBC 4.72 MCV 85.5 MCHC 32.8 RDW 15.4 MPV 8.7 Neutrophils % 62.8 Lymphocytes % 21.1 Monocytes % 12.5 H Eosinophils % 2.5 Basophils % 1.1 - Medications Given in the ED: ED Medications Discontinued Medications Generic Name Dose Route Start Last Admin Trade Name Freq PRN Reason Stop Dose Admin Acetaminophen 1,000 mg 02/18/19 22:56 02/18/19 23:08 Ofirmev Injection - IVPB 02/18/19 22:57 1,000 mg ONCE ONE Administration Ondansetron HCl 4 mg 02/18/19 23:04 02/18/19 23:08 Zofran Injection IVPUSH 02/18/19 23:05 4 mg ONCE ONE Administration Medical Decision Making - Medical Decision Making 02/19/19 04:00 ABDOMEN/PELVIS 7.4 x 6.8 cm infrarenal abdominal aortic aneurysm status post aortobiiliac stent. Occluded portion of the aneurysm is thrombosed, with scattered small densities that may represent calcifications. Small endoleak thought less likely but not excluded. Occluded left iliac stent, left common iliac artery and proximal portions of external and internal iliac arteries. Reconstituted flow in distal portions of both external and internal iliac arteries suggests that findings may be chronic. Nonthrombosed 2.9 cm fusiform aneurysm right common iliac artery. Right iliac portion of stent extends across a portion of the aneurysm. No bowel obstruction or inflammation. No free fluid or free air. No evidence for appendicitis. Unremarkable liver, spleen, stomach, pancreas, kidneys. Dilated gallbladder containing multiple small stones, similar to recent ultrasound findings. If there is concern for early acute cholecystitis, consider followup ultrasound. Chronic left rib fractures. LEFT LOWER EXTREMITY Patent main arteries and branches to level of foot. RIGHT LOWER EXTREMITY Thrombus in right popliteal artery causing marked stenosis. Smaller areas of thrombus in right tibioperoneal trunk. Patent common fermoral,superficial femoral and anterior arteries, and patent distal branches to level of foot. 1st page to Dr. Puente 02/19/19 04:[address] Puente on-call line to discuss patient's findings. 02/19/19 05:01 02/19/19 05:[address] Puente who will see the patient in his office. Patient will call office to make appointment. Discharge - Discharge Information Problems reviewed: Yes Clinical Impression/Diagnosis: Abdominal pain Condition: Improved Disposition: HOME - Admission No - Follow up/Referral Referrals: Hortensia Wetzel MD [Primary Care Provider] - Dick Puente MD [Staff Physician] - - Patient Discharge Instructions Patient Printed Discharge Instructions: DI for Chest Pain Additional Instructions: Follow up with Dr. Puente in the morning and make appointment HOLLY. Come back to the emergency department for any new, worsening or concerning symptoms. - Post Discharge Activity
--- NOTE | 2019-02-19 05:51 | PDOC ---
*Physical Exam - Vital Signs Last Vital Signs Temp Pulse Resp BP Pulse Ox 98.2 F 63 18 131/71 99 02/19/19 03:26 02/19/19 03:26 02/19/19 03:26 02/19/19 03:26 02/19/19 03:26 ED Treatment Course - LABORATORY CBC & Chemistry Diagram: 02/18/19 22:28 02/18/19 22:28 - ADDITIONAL ORDERS Additional order review: Laboratory Results 02/18/19 02/18/19 23:32 22:28 Sodium 141 Potassium 4.1 Chloride 106 Carbon Dioxide 26 Anion Gap 8 BUN 16.0 Creatinine 0.8 Est GFR (CKD-EPI)AfAm 122.43 Est GFR (CKD-EPI)NonAf 105.63 Random Glucose 106 Calcium 9.3 Total Bilirubin 0.4 AST 27 ALT 26 Alkaline Phosphatase 66 Creatine Kinase 111 Troponin I < 0.02 Total Protein 7.3 Albumin 3.5 Lipase 107 Urine Color Yellow Urine Appearance Clear Urine pH 6.5 D Ur Specific [place] 1.014 Urine Protein Negative Urine Glucose (UA) Negative Urine Ketones Negative Urine Blood 1+ H Urine Nitrite Negative Urine Bilirubin Negative Urine Urobilinogen 0.2 Ur Leukocyte Esterase Negative Urine WBC (Auto) 0 Urine RBC (Auto) 11 Urine Casts (Auto) 0 U Epithel Cells (Auto) 0.4 Urine Bacteria (Auto) 0.3 02/18/19 22:28 RBC 4.72 MCV 85.5 MCHC 32.8 RDW 15.4 MPV 8.7 Neutrophils % 62.8 Lymphocytes % 21.1 Monocytes % 12.5 H Eosinophils % 2.5 Basophils % 1.1 - Medications Given in the ED: ED Medications Discontinued Medications Generic Name Dose Route Start Last Admin Trade Name Enricoq PRN Reason Stop Dose Admin Acetaminophen 1,000 mg 02/18/19 22:56 02/18/19 23:08 Ofirmev Injection - IVPB 02/18/19 22:57 1,000 mg ONCE ONE Administration Ondansetron HCl 4 mg 02/18/19 23:04 02/18/19 23:08 Zofran Injection IVPUSH 02/18/19 23:05 4 mg ONCE ONE Administration Medical Decision Making - Medical Decision Making 02/19/19 05:43 Was called by radiology for finding of RLE popliteal artery occlusion thrombus/ embolism Exam inconsistent with findings for limb ischemia, no pain, cap refill <2 sec, no motor deficit, no sensory deficit, palpable distal pulses, warm limb No hx of preceeding claudication, occlusion likely embolus of chronic AAA thrombus material and less likely primary thrombus Immediate/emergent thrombolysis not indicated, will need urgent evaluation by vascular surgeon for consideration of emoblectomy/thrombectomy vs thrombolysis Spoke with Dr. Govea, will send for urgent out patient evaluation Strict return precautions Discharge - Discharge Information Problems reviewed: Yes Clinical Impression/Diagnosis: Abdominal pain Qualifiers: Abdominal location: right upper quadrant Qualified Code(s): R10.11 - Right upper quadrant pain Condition: Improved Disposition: HOME - Follow up/Referral Referrals: Hortensia Wetzel MD [Primary Care Provider] - Dick Puente MD [Staff Physician] - - Patient Discharge Instructions Patient Printed Discharge Instructions: DI for Chest Pain Additional Instructions: Follow up with Dr. Puente in the morning and make appointment HOLLY. Come back to the emergency department for any new, worsening or concerning symptoms. - Post Discharge Activity
--- NOTE | 2019-02-19 13:44 | EKG ---
Test Reason : Blood Pressure : / mmHG Vent. Rate : 068 BPM Atrial Rate : 068 BPM P-R Int : 200 ms QRS Dur : 104 ms QT Int : 412 ms P-R-T Axes : 029 000 030 degrees QTc Int : 438 ms NORMAL SINUS RHYTHM NON-SPECIFIC INTRA-VENTRICULAR CONDUCTION DELAY MINIMAL VOLTAGE CRITERIA FOR LVH, MAY BE NORMAL VARIANT WHEN COMPARED WITH ECG OF 07-NOV-2018 15:11, NO SIGNIFICANT CHANGE WAS FOUND Confirmed by DAFNE CHERRY MD ([id number]) on 02/19/2019 1:44:33 PM Referred By: Confirmed By:DAFNE CHERRY MD
== END 2019-02-19 05:56 | disposition home or self-care (01) ==
LOC: JER 21:53
PROC: 3E033NZ Introduction of Analgesics, Hypnotics, Sedatives into Peripheral Vein, Percutaneous Approach (ICD-10-PCS; principal; 2019-02-18)
PROC: 3E033GC Introduction of Other Therapeutic Substance into Peripheral Vein, Percutaneous Approach (ICD-10-PCS; 2019-02-18)
DX: R01.1 Cardiac murmur, unspecified (principal); I10 Essential (primary) hypertension; I71.4 Abdominal aortic aneurysm, without rupture; N20.0 Calculus of kidney; K80.20 Calculus of gallbladder without cholecystitis without obstruction
CPT/HCPCS: 36415; 71045-TC-FY; 75635-TC; 76705-TC; 80053; 81003; 82550; 83690; 84484; 85025; 87086; 93005; 93010; 99284-25; J0131